=== PATIENT | male | born 1960 | race Caucasian/White ===

== ENCOUNTER 2016-12-07 23:16 | Inpatient (IN) | payer OTHER ==
[2016-12-07] MEDS ORDERED: ASPIRIN 81 MG CHEWABLE TABLETS PO ONE (23:35)
--- NOTE | 2016-12-07 23:35 | PDOC ---
History of Present Illness - General History Source: Patient <Frederick Schroeder - Last Filed: 12/08/16 01:50> - General History Source: Patient Exam Limitations: No Limitations - History of Present Illness Initial Comments: 12/07/16 23:44 The patient is a 56 year old male with significant past medical history of AZ, CAD, s/p pacemaker, s/p stents x4, s/p CABG, hypertension, hyperlipidemia, and s /p right craniotomy for SDH evacuation (09/22/16) who presents to the ED with mid sternal chest pain that began earlier this afternoon. Patient reports he was in his usual state of health when he developed mid sternal chest pain with no radiation. He states his pain is worsened when lying supine. Patient denies diaphoresis, lightheadedness, SOB, shoulder pain, arm pain, jaw pain, nausea, and vomiting. Patient reports his pain is consistent with his previous AZ in the past. He states he is complaint with his medications. The patient denies fever, chills, cough, abdominal pain, and diarrhea. Allergies: NKDA Social History: No alcohol, tobacco, or drug use reported. Past Surgical History: CABG, cardiac stents x4, tonsillectomy, gastric bypass, s /p right craniotomy for SDH evacuation (09/22/16) PCP: Dr. Dada Alexander <Alexandra Srinivasan - Last Filed: 12/08/16 01:56> - General Chief Complaint: Chest Pain Stated Complaint: CHEST PAIN Time Seen by Provider: 12/07/16 23:29 Past History - Past Medical History Anemia: No Asthma: No Cancer: Yes Cardiac Disorders: Yes (CAD) CVA: No COPD: No CHF: Yes Diabetes: No GI Disorders: No HTN: No Hypercholesterolemia: Yes Liver Disease: No Thyroid Disease: No - Surgical History Abdominal Surgery: Yes (gastric bypass) Appendectomy: No Cardiac Surgery: Yes (triple bypass,stents,ICD) Cholecystectomy: No Lung Surgery: No Neurologic Surgery: Yes (brain sx blood clot) Orthopedic Surgery: No - Psycho/Social/Smoking Cessation Hx Anxiety: No Suicidal Ideation: No Smoking Status: No Smoking History: Never smoked Have you smoked in the past 12 months: No Number of Cigarettes Smoked Daily: 0 Information on smoking cessation initiated: No Hx Alcohol Use: No Drug/Substance Use Hx: No Substance Use Type: None Hx Substance Use Treatment: No <TeenicholasFrederick - Last Filed: 12/08/16 01:50> <Alexandra Srinivasan - Last Filed: 12/08/16 01:56> - Past Medical History Allergies/Adverse Reactions: Allergies Allergy/AdvReac Type Severity Reaction Status Date / Time No Known Allergies Allergy Verified 12/07/16 23:19 Home Medications: Ambulatory Orders Atorvastatin Ca [Lipitor] 80 mg PO HS 09/20/16 Calcium Carbonate/Vitamin D3 [Calcium 500 + Vit D Caplet] 1 each PO DAILY Carvedilol 6.25 mg PO BID 09/20/16 Isosorbide Mononitrate [Isosorbide Mononitrate ER] 30 mg PO DAILY 09/20/16 Lisinopril 5 mg PO DAILY 09/20/16 Multivitamin [Poly-Vitamin] 1 each PO DAILY 09/20/16 Acetaminophen [Tylenol .Regular Strength -] 650 mg PO Q6H PRN #30 tablet Atorvastatin Ca [Lipitor] 80 mg PO HS tablet 09/26/16 Calcium (Oyster Shell) [Os-Aiden 500MG -] 500 mg PO DAILY tablet 09/26/16 Carvedilol [Coreg -] 6.25 mg PO BID tablet 09/26/16 Docusate Sodium [Colace -] 100 mg PO TID #90 capsule 09/26/16 Hydrocortisone [Cortef] 10 mg PO DAILY #47 tablet 09/26/16 Isosorbide Mononitrate [Imdur -] 30 mg PO DAILY #30 tab.sr.24h 09/26/16 Levetiracetam [Keppra -] 500 mg PO BID #60 tablet 09/26/16 Lisinopril [Prinivil] 5 mg PO DAILY tablet 09/26/16 Multivitamins [Multivit ([facility] Formul[facility])] 1 tab PO DAILY tab 09/26/16 Review of Systems - Review of Systems Able to Perform ROS?: Yes Comments:: 12/07/16 23:44 CONSTITUTIONAL: Absent: fever, chills, diaphoresis, generalized weakness, malaise, loss of appetite HEENT: Absent: rhinorrhea, nasal congestion, throat pain, throat swelling, difficulty swallowing, mouth swelling, ear pain, eye pain, visual Changes CARDIOVASCULAR: +midsternal chest pain Absent: syncope, palpitations, irregular heart rate, lightheadedness, peripheral edema RESPIRATORY: Absent: cough, shortness of breath, dyspnea with exertion, orthopnea, wheezing, stridor, hemoptysis GASTROINTESTINAL: Absent: abdominal pain, abdominal distension, nausea, vomiting, diarrhea, constipation, melena, hematochezia GENITOURINARY: Absent: dysuria, frequency, urgency, hesitancy, hematuria, flank pain, genital pain MUSCULOSKELETAL: Absent: myalgia, arthralgia, joint swelling SKIN: Absent: rash, itching, pallor NEUROLOGIC: Absent: headache, focal weakness or paresthesias, dizziness, unsteady gait, seizure, mental status changes, bladder or bowel incontinence PSYCHIATRIC: Absent: anxiety, depression, suicidal or homicidal ideation, hallucinations. <Alexandra Srinivasan - Last Filed: 12/08/16 01:56> *Physical Exam - Vital Signs Last Vital Signs Temp Pulse Resp BP Pulse Ox 97.5 F L 100 H 18 160/97 95 12/07/16 23:19 12/07/16 23:19 12/07/16 23:19 12/07/16 23:19 12/07/16 23:19 <Frederick Schroeder - Last Filed: 12/08/16 01:50> - Vital Signs Last Vital Signs Temp Pulse Resp BP Pulse Ox 97.5 F L 100 H 18 160/97 95 12/07/16 23:19 12/07/16 23:19 12/07/16 23:19 12/07/16 23:19 12/07/16 23:19 - Physical Exam Comments: 12/07/16 23:44 GENERAL: Well developed, well nourished. Awake and alert. Moderate distress. HEENT: Normocephalic, atraumatic. PERRLA, EOMI. No conjunctival pallor. Sclera are non- icteric. Moist mucous membranes. Oropharynx is clear. NECK: Supple. Full ROM. No JVD. Carotid pulses 2+ and symmetric, without bruits. No thyromegaly. No lymphadenopathy. CARDIOVASCULAR: Regular rate and rhythm. No murmurs, rubs, or gallops. Distal pulses are 2+ and symmetric. PULMONARY: No evidence of respiratory distress. Lungs clear to auscultation bilaterally. No wheezing, rales or rhonchi. ABDOMINAL: Soft. Non-tender. Morbidly obese. No rebound or guarding. No organomegaly. Normoactive bowel sounds. MUSCULOSKELETAL Normal range of motion at all joints. No bony deformities or tenderness. No CVA tenderness. EXTREMITIES: No cyanosis. No clubbing. No edema. No calf tenderness. SKIN: Warm and dry. Normal capillary refill. No rashes. No jaundice. NEUROLOGICAL: Alert, awake, appropriate. Cranial nerves 2-12 intact. No deficits to light touch and temperature in face, upper extremities and lower extremities. No motor deficits in the in face, upper extremities and lower extremities. Normoreflexic in the upper and lower extremities. Normal speech. PSYCHIATRIC: Cooperative. Good eye contact. Appropriate mood and affect. <Alexandra Srinivasan - Last Filed: 12/08/16 01:56> Heart Score/ECG Review - ECG Impressions Comment:: 12/08/16 00:47 NSR @78bpm Inferior infarct, age undetermined Possible anterior infarct, age undetermined Abnormal ECG <Alexandra Srinivasan - Last Filed: 12/08/16 01:56> ED Treatment Course - LABORATORY CBC & Chemistry Diagram: 12/08/16 00:14 12/08/16 00:14 <Frederick Schroeder - Last Filed: 12/08/16 01:50> - LABORATORY CBC & Chemistry Diagram: 12/08/16 00:14 12/08/16 00:14 <Alexandra Srinivasan - Last Filed: 12/08/16 01:56> Medical Decision Making - Medical Decision Making 12/08/16 01:50 Dr. Schroeder: The scribe's documentation has been prepared under my direction and personally reviewed by me in its entirery. I confirm that the note above accurately reflects all work, treatment, procedures, and medical decision making performed by me. Patient with diagnosis of NSTEMI. patient will be admitted ICU under Dr. Dickens service. Dr. Deng Lindo. <Frederick Schroeder - Last Filed: 12/08/16 01:50> - Medical Decision Making 12/08/16 01:[address] Marta Dickens (via answering service) at 1:14 Awaiting call back Patient's case discussed with Dr. Annabi at 1:40 <Alexandra Srinivasan - Last Filed: 12/08/16 01:56> *DC/Admit/Observation/Transfer - Discharge Dispostion Admit: Yes <Frederick Schroeder - Last Filed: 12/08/16 01:50> - Attestations Scribe Attestion: 12/07/16 23:44 Documentation prepared by Alexandra Srinivasan, acting as medical library assistant for Frederick Schroeder MD <Alexandra Srinivasan - Last Filed: 12/08/16 01:56> Diagnosis at time of Disposition: NSTEMI (non-ST elevated myocardial infarction) Chest pain Qualifiers: Chest pain type: unspecified Qualified Code(s): R07.9 - Chest pain, unspecified - Referrals Referrals: Dada Alexander [Primary Care Provider] -
[2016-12-07] MEDS ORDERED: NITROGLYCERIN 2% OINTMENT - 1GM PACKET TD ONE (23:38)
[2016-12-08] MEDS ORDERED: ASPIRIN 81 MG CHEWABLE TABLETS ONE (00:06)
[2016-12-08 00:21] LABS: BASOPHIL 1.4 % (0-2.0); EOSINOPHIL 4.6 % (0-4.5); MCH 27.7 pg (25.7-33.7); MCHC 33.3 g/dl (32.0-35.9); MEAN CELL VOLUME 83.4 fl (80-96); MEAN PLT VOLUME 8.5 fl (7.5-11.1); NEUTROPHILS 49.8 % (42.8-82.8); PLATELET COUNT 192 K/MM3 (134-434); RDW 14.3 % (11.9-15.9); WHITE BLOOD COUNT 8.3 K/mm3 (4.0-10.0)
[2016-12-08 00:41] LABS: INR 1.04 (0.82-1.09); PROTHROMBIN TIME (PATIENT) 11.5 SEC (9.98-11.88)
[2016-12-08 00:48] LABS: ALBUMIN 3.7 g/dl (3.4-5.0); ANION GAP 8 (8-16); CALCIUM 8.3 mg/dL (8.5-10.1); CO2 31 mmol/L (21-32); CREATININE 1.1 mg/dL (0.7-1.3); GLUCOSE,RANDOM 121 mg/dL (74-106); SGOT/AST 28 U/L (15-37); SGPT/ALT 29 U/L (12-78)
[2016-12-08 01:04] LABS: ALK PHOS 64 U/L (45-117); BILIRUBIN,TOTAL 0.2 mg/dL (0.2-1.0)
[2016-12-08] MEDS ORDERED: CLOPIDOGREL BISULFATE 300 MG TABLET PO ONE (01:13)
[2016-12-08] MEDS ORDERED: morphine CARPU-JECT 2 MG/1 ML DISP.SYRIN IVPUSH ONE ×3 (01:18→11:32)
[2016-12-08] MEDS ORDERED: HEPARIN NA (PORCINE) 5,000 UNITS/ML 1ML VIAL IVPUSH PRN ×2 (01:18)
[2016-12-08] MEDS ORDERED: HEPARIN INFUSION - 500 ML IVPB ONE (01:25)
[2016-12-08] MEDS ORDERED: CLOPIDOGREL BISULFATE 300 MG TABLET ONE (01:25)
[2016-12-08] MEDS ORDERED: morphine CARPU-JECT 2 MG/1 ML DISP.SYRIN ONE ×2 (01:25→03:23)
[2016-12-08] MEDS ORDERED: HEPARIN - 25,000 UNIT in SODIUM CHLORIDE 495 ML IV SCH ×2 (01:30→10:45)
[2016-12-08] MEDS ORDERED: CALCIUM GLUCONATE 10% - 1,000 MG/10 ML VIAL IVPB ONE (03:12)
--- NOTE | 2016-12-08 03:15 | CONSULT ---
Consult Consult Specialty:: Pulm/CC - History of Present Illness History of Present Illness: Pt is a 56yr old man with PMHx of SC, CAD s/p stents x4, ICD, CABG, HTN, HLD and craniotomy for evacuation [place] [address] Simpson. He presents to the ER with CC of midsternal chest pain since the afternoon of the . Found to have +troponinx1. Pt started on asa/heparin gtt/plavix/nitropaste and admitted to the ICU for further management. Upon assessment pt endorses chest pain in the midsternal region, nonradiating, described as similar to muscle pain. Pt denies headache/dizziness/n/v/sob. 124/83, hr 77, 98% on RA RR 20. - Past Medical History Cardio/Vascular: Yes: CAD (multiple MIs, PCIs/stents, CABG), HTN, Hyperlipdemia , [place] Musculoskeletal: Yes: Other (left heel spur 2012) - Past Surgical History Past Surgical History: Yes: CABG (2007), Tonsillectomy - Alcohol/Substance Use Hx Alcohol Use: No History of Substance Use: reports: None - Smoking History Smoking history: Never smoked Have you smoked in the past 12 months: No Aproximately how many cigarettes per day: 0 - Social History ADL: Independent Occupation: disabled History of Recent Travel: No <Myra Montano - Last Filed: 12/08/16 05:19> Home Medications <Myra Montano - Last Filed: 12/08/16 05:19> <Dada Villaseñor MD - Last Filed: 12/08/16 12:38> - Allergies Allergies/Adverse Reactions: Allergies Allergy/AdvReac Type Severity Reaction Status Date / Time No Known Allergies Allergy Verified 12/07/16 23:19 - Home Medications Home Medications: Ambulatory Orders Isosorbide Mononitrate [Isosorbide Mononitrate ER] 30 mg PO DAILY 09/20/16 Acetaminophen [Tylenol .Regular Strength -] 650 mg PO Q6H PRN #30 tablet Atorvastatin Ca [Lipitor] 80 mg PO HS tablet 09/26/16 Calcium (Oyster Shell) [Os-Aiden 500MG -] 500 mg PO DAILY tablet 09/26/16 Carvedilol [Coreg -] 6.25 mg PO BID tablet 09/26/16 Docusate Sodium [Colace -] 100 mg PO TID #90 capsule 09/26/16 Hydrocortisone [Cortef] 10 mg PO DAILY #47 tablet 09/26/16 Levetiracetam [Keppra -] 500 mg PO BID #60 tablet 09/26/16 Lisinopril [Prinivil] 5 mg PO DAILY tablet 09/26/16 Multivitamins [Multivit ([facility] Formul[facility])] 1 tab PO DAILY tab 09/26/16 Aspirin [ASA -] 81 mg PO DAILY@2200 tab.chew 12/08/16 Atorvastatin Ca [Lipitor] 80 mg PO HS tablet 12/08/16 Carvedilol [Coreg -] 6.25 mg PO DAILY@1800 tablet 12/08/16 Levetiracetam [Keppra -] 500 mg PO BID tablet 12/08/16 Lisinopril [Prinivil] 5 mg PO DAILY tablet 12/08/16 Nitroglycerin Sublingual [Nitrostat -] 0.4 mg SL Q5M PRN #0 tab 12/08/16 Family Disease History - Family Disease History Family Disease History: Heart Disease: Father ( age 76 CAD, PAD), Other: Father, Mother (alive healthy) <Myra Montano - Last Filed: 12/08/16 05:19> Review of Systems - Review of Systems Cardiovascular: reports: Chest Pain. denies: Shortness of Breath Respiratory: denies: SOB Gastrointestinal: denies: Abdominal Pain, Constipation, Diarrhea, Nausea, Vomiting Genitourinary: denies: Dysuria Neurological: denies: Headache <Myra Montano - Last Filed: 12/08/16 05:19> Physical Exam Vital Signs: Vital Signs Period Temp Pulse Resp BP Sys/Perez Pulse Ox Last 24 Hr 97.3 F-97.5 F 80-100 18-21 127-160/93-97 95-96 Intake & Output 12/05/16 12/06/16 12/07/16 12/08/16 23:59 23:59 23:59 23:59 Weight 285 lb Constitutional: Yes: Well Nourished, No Distress, Calm Eyes: Yes: WNL, PERRL HENT: Yes: WNL Neck: Yes: WNL Cardiovascular: Yes: S1, S2, Other (chest pain) Respiratory: Yes: WNL, Other (no adventitious breath sounds appreciated). No: Rhonchi, SOB, Wheezes Gastrointestinal: Yes: Normal Bowel Sounds, Soft, Abdomen, Obese. No: Tenderness ...Rectal Exam: Yes: Deferred Extremities: Yes: WNL Edema: No Peripheral Pulses WNL: Yes (+2 rt pedal, +1 left pedal) Integumentary: Yes: WNL Neurological: Yes: WNL Psychiatric: Yes: WNL Labs: Abnormal Lab Results 12/08/16 12/08/16 00:14 00:14 Monocytes % 10.6 H Eosinophils % 4.6 H D Random Glucose 121 H Calcium 8.3 L CK-MB (CK-2) 4.04 H Troponin I 1.10 H* D B-Natriuretic Peptide 641.68 H <Myra Montano - Last Filed: 12/08/16 05:19> Vital Signs: Vital Signs Temperature 97.2 F L 12/08/16 10:00 Pulse Rate 75 12/08/16 12:00 Respiratory Rate 16 12/08/16 12:00 Blood Pressure 124/78 12/08/16 12:00 O2 Sat by Pulse Oximetry (%) 96 12/08/16 02:26 <Dada Villaseñor MD - Last Filed: 12/08/16 12:38> Imaging - Results Chest X-ray: Image Reviewed <Myra Montano - Last Filed: 12/08/16 05:19> Assessment/Plan Pt is a 56yr old man with PMHx of SC, CAD s/p stents x4, ICD, CABG, HTN, HLD and craniotomy for evacuation [place] [address] Simpson. Now in the ICU for management of NSTEMI. Pulm: -O2 support, maintain sat >94% -Incentive spirometer Cardiac -Dr. Lindo consulted in ER -Continue heparin drip, monitor PTT -ASA/Plavix/statin/bb/acei -Trend troponin -F/U repeat EKG -Received with nitropaste on chest, continue prn -BP control -Pt will need cardiac cath ID: -f/[id number] influenza swab -Monitor off antibiotics for now Renal: -Replete electrolytes prn for K 4-5, Mag ~2 Neuro: -Pain management with morphine -Avoid NSAIDS -Continue home Keppra -Seizure precautions Prophylactic -DVT covered with heparin drip <Myra Montano - Last Filed: 12/08/16 05:19> Pt seen and examined. Agree with above. Pt with Acute NSTEMI and persistent chest pain, will be transferred to [facility] for cardiac catheterization. Increase morphine for persistent chest pain while on nitro gtt. Dada Villaseñor MD <Dada Villaseñor MD - Last Filed: 12/08/16 12:38>
[2016-12-08] MEDS ORDERED: morphine CARPU-JECT 2 MG/1 ML DISP.SYRIN IVPUSH PRN ×2 (03:16→05:53)
[2016-12-08] MEDS ORDERED: ATORVASTATIN CA 80 MG TABLET (FP) PO ONE (03:17)
[2016-12-08] MEDS ORDERED: CARVEDILOL 3.125 MG TABLET (FP) PO ONE (03:19)
[2016-12-08 04:07] VITALS: BMI 50.8
[2016-12-08] MEDS ORDERED: morphine CARPU-JECT 4 MG/1 ML DISP.SYRIN IVPUSH ONE (05:52)
[2016-12-08] MEDS ORDERED: NITROGLYCERIN SUBLINGUAL 1/150 0.4 MG TAB SL PRN (05:56)
[2016-12-08 07:05] LABS: PHOSPHOROUS 3.7 mg/dL (2.5-4.9)
[2016-12-08 09:22] LABS: URINE APPEARANCE CLEAR; URINE BILIRUBIN NEGATIVE (NEGATIVE); URINE BLOOD NEGATIVE (NEGATIVE); URINE COLOR YELLOW; URINE GLUCOSE (UA) NEGATIVE (NEGATIVE); URINE KETONE NEGATIVE (NEGATIVE); URINE LEUK ESTERASE NEGATIVE (NEGATIVE); URINE NITRITE NEGATIVE (NEGATIVE); URINE PROTEIN NEGATIVE (NEGATIVE); URINE UROBILINOGEN NEGATIVE E.U./dl (0.2-1.0)
[2016-12-08] MEDS ORDERED: PT OWN MED DRAWER 7, Y5N ONE ×2 (09:24→11:30)
--- NOTE | 2016-12-08 09:39 | CON.CARD ---
Consult Consult Specialty:: Cardiology Referred by:: Dr. Dickens Reason for Consultation:: NSTEMI - History of Present Illness Chief Complaint: Chest pain, NSTEMI History of Present Illness: 56 yo obese male with HTN, hyperlipidemia, CAD, MIx2 in 2007 -> PCI at [facility] after first RI and subsequent CABG x3 vessels 2007 at [facility] after second RI, PCI of LCfx with CHRISTIANO at [facility] 09/2014 -> last stress nuclear on -> large inferior and apical infarct with small infero-apical ischemia, EF 27%, chronic systolic CHF, SRAVANTHI. Patient was last hospitalized here 09/21 - 09/26/16 with subacute right frontal subdural hematoma following head trauma. He underwent craniotomy with evacuation of subdural hematoma on 09/22/16. He is now admitted with substernal chest pain which began yesterday ~ 11 AM when walking quickly to put more money in the parking meter. In ED, he was given NTG paste, aspirin, clopidogrel, and heparin gtt. He continues to have chest pain. Patient reports that he saw Dr. Jose Simpson from neurosurgery ~ 1 month ago and was scheduled to see him in a week or so with repeat head CT. Echo 09/22/16: Severely dilated LV size with moderately reduced systolic function. Mild MR. Mild TR. Normal RVSP. - History Source History Provided By: Patient Limitations to Obtaining History: No Limitations - Past Medical History Cardio/Vascular: Yes: CAD (multiple MIs, PCIs/stents, CABG), HTN, Hyperlipdemia , RI Musculoskeletal: Yes: Other (left heel spur 2012) - Past Surgical History Past Surgical History: Yes: CABG (2007), Tonsillectomy - Alcohol/Substance Use Hx Alcohol Use: No History of Substance Use: reports: None - Smoking History Smoking history: Never smoked Have you smoked in the past 12 months: No Aproximately how many cigarettes per day: 0 - Social History ADL: Independent Occupation: disabled History of Recent Travel: No Home Medications - Allergies Allergies/Adverse Reactions: Allergies Allergy/AdvReac Type Severity Reaction Status Date / Time No Known Allergies Allergy Verified 12/07/16 23:19 - Home Medications Home Medications: Ambulatory Orders Isosorbide Mononitrate [Isosorbide Mononitrate ER] 30 mg PO DAILY 09/20/16 Acetaminophen [Tylenol .Regular Strength -] 650 mg PO Q6H PRN #30 tablet Atorvastatin Ca [Lipitor] 80 mg PO HS tablet 09/26/16 Calcium (Oyster Shell) [Os-Aiden 500MG -] 500 mg PO DAILY tablet 09/26/16 Carvedilol [Coreg -] 6.25 mg PO BID tablet 09/26/16 Docusate Sodium [Colace -] 100 mg PO TID #90 capsule 09/26/16 Hydrocortisone [Cortef] 10 mg PO DAILY #47 tablet 09/26/16 Levetiracetam [Keppra -] 500 mg PO BID #60 tablet 09/26/16 Lisinopril [Prinivil] 5 mg PO DAILY tablet 09/26/16 Multivitamins [Multivit ([facility] Formulary)] 1 tab PO DAILY tab 09/26/16 Aspirin [ASA -] 81 mg PO DAILY@2200 tab.chew 12/08/16 Atorvastatin Ca [Lipitor] 80 mg PO HS tablet 12/08/16 Carvedilol [Coreg -] 6.25 mg PO DAILY@1800 tablet 12/08/16 Levetiracetam [Keppra -] 500 mg PO BID tablet 12/08/16 Lisinopril [Prinivil] 5 mg PO DAILY tablet 12/08/16 Nitroglycerin Sublingual [Nitrostat -] 0.4 mg SL Q5M PRN #0 tab 12/08/16 Family Disease History - Family Disease History Family Disease History: Heart Disease: Father ( age 76 CAD, PAD), Other: Father, Mother (alive healthy) Review of Systems - Review of Systems Constitutional: reports: No Symptoms Eyes: reports: No Symptoms HENT: reports: No Symptoms Cardiovascular: reports: Chest Pain. denies: Edema, Palpitations, Shortness of Breath Respiratory: reports: No Symptoms Gastrointestinal: reports: No Symptoms Genitourinary: reports: No Symptoms Musculoskeletal: reports: No Symptoms Neurological: reports: No Symptoms Endocrine: reports: No Symptoms Hematology/Lymphatic: reports: No Symptoms Psychiatric: reports: No Symptoms Vital Signs: Vital Signs Temperature 97.8 F 12/08/16 06:00 Pulse Rate 76 12/08/16 08:00 Respiratory Rate 16 12/08/16 08:00 Blood Pressure 133/88 12/08/16 08:00 O2 Sat by Pulse Oximetry (%) 96 12/08/16 02:26 Constitutional: Yes: Obese Eyes: Yes: Conjunctiva Clear, EOM Intact HENT: Yes: Atraumatic, Normocephalic Respiratory: Yes: CTA Bilaterally Gastrointestinal: Yes: Normal Bowel Sounds, Soft. No: Tenderness Cardiovascular: Yes: Regular Rate and Rhythm JVD: Yes Carotid Bruit: Yes Heart Sounds: Yes: S1, S2 Murmur: No: Systolic Murmur Musculoskeletal: Yes: WNL Extremities: Yes: WNL Edema: No Neurological: Yes: Alert, Oriented, Cran Nerves II-XII Intact Psychiatric: Yes: Alert, Oriented - Other Data Labs, Other Data: INR, PTT INR 1.04 (0.82-1.09) 12/08/16 00:14 Troponin, BNP 12/08/16 05:05 Troponin I Cancelled Troponin, BNP 12/08/16 05:05 Troponin I Cancelled Sinus rhythm, possible LAE, inferior infarct, poor R wave progression, but no change from 09/24/16 ECG. Imaging - Results Chest X-ray: Report Reviewed, Image Reviewed (12/08/16 CXR: No effusions or infiltrates.) Assessment/Plan 56 yo obese male with HTN, hyperlipidemia, CAD, MIx2 in 2007 -> PCI at [facility] after first RI and subsequent CABG x3 vessels 2007 at [facility] after second RI, PCI of LCfx with CHRISTIANO at [facility] 09/2014 -> last stress nuclear on -> large inferior and apical infarct with small infero-apical ischemia, EF 27%, chronic systolic CHF, & SRAVANTHI. Patient was last hospitalized here 09/21 - 09/26/16 with subacute right frontal subdural hematoma following head trauma. He underwent craniotomy with evacuation of subdural hematoma on 09/22/16. Admitted with substernal chest pain which began yesterday ~ 11 AM -> NSTEMI. No acute ECG changes but continued chest pain and trop 1.11 -> 2.55 Echo 09/22/16: Severely dilated LV size with moderately reduced systolic function. Mild MR. Mild TR. Normal RVSP. Patient continues to have chest pain, 8/10 pain scale despite NTG sl x 1. Received aspirin and Plavix last night. RECS: Start NTG gtt and uptitrate prn. Will stop heparin gtt at this time until stat head CT to confirm if prior subdural hematoma in Sep 2016 is stable. Continue carvedilol and lisinopril. Neurosurgery consultation. If SDH is stable and OK per neurosurgery, will send patient for cardiac cath at [facility]. Spoke with Dr. Simpson (neurosurgery) and Dr. Kumar regarding patient's status and current plan.
[2016-12-08 09:50] LABS: TROPONIN I 2.55 ng/ml (0.00-0.05)
[2016-12-08] MEDS ORDERED: levETIRAcetam 500 MG TABLET (FP) PO SCH (10:00)
[2016-12-08] MEDS ORDERED: NITROGLYCERIN 25MG/D5W 250ML 250 ML IVPB SCH (10:00)
[2016-12-08] MEDS ORDERED: LISINOPRIL 5 MG TABLET (FP) PO SCH (10:00)
[2016-12-08 10:05] VITALS: TEMP 97.2
--- NOTE | 2016-12-08 10:11 | HP ---
Admitting History and Physical - Primary Care Physician PCP: Flaquita Kumar - Admission Chief Complaint: CHEST PAIN PROGRESSIVELY WORSE History of Present Illness: PATIENT WAS PLAYING [employer]INOES WITH FRIENDS AND RAN TO PUT MONEY IN HIS PARKING METER AND DEVELOPED SUDDEN DYSPNEA, CHEST PAIN THAT PROGRESSIVELY WORSENED PROMPTING HIM TO COME TO THE ED FOR EVALUATION. Pt is a 56yr old man with PMHx of UT, CAD s/p stents x4, ICD, CABG, HTN, HLD and craniotomy for [place] [address] Simpson. He presents to the ER with CC of midsternal chest pain since the afternoon of the . Found to have +troponinx1. Pt started on asa/heparin gtt/plavix/nitropaste and admitted to the ICU for further management. Upon assessment pt endorses chest pain in the midsternal region, nonradiating, described as similar to muscle pain. Pt denies headache/dizziness/n/v/sob. 124/83, hr 77, 98% on RA RR 20. History Source: Patient - Past Medical History Cardiovascular: Yes: CAD (multiple MIs, PCIs/stents, CABG), HTN, Hyperlipdemia, UT Musculoskeletal: Yes: Other (left heel spur 2012) - Past Surgical History Past Surgical History: Yes: CABG (2007), Tonsillectomy - Smoking History Smoking history: Never smoked Have you smoked in the past 12 months: No Aproximately how many cigarettes per day: 0 - Alcohol/Substance Use Hx Alcohol Use: No History of Substance Use: reports: None - Social History ADL: Independent Occupation: disabled History of Recent Travel: No Home Medications - Allergies Allergies/Adverse Reactions: Allergies Allergy/AdvReac Type Severity Reaction Status Date / Time No Known Allergies Allergy Verified 12/07/16 23:19 - Home Medications Home Medications: Ambulatory Orders Isosorbide Mononitrate [Isosorbide Mononitrate ER] 30 mg PO DAILY 09/20/16 Acetaminophen [Tylenol .Regular Strength -] 650 mg PO Q6H PRN #30 tablet Atorvastatin Ca [Lipitor] 80 mg PO HS tablet 09/26/16 Calcium (Oyster Shell) [Os-Aiden 500MG -] 500 mg PO DAILY tablet 09/26/16 Carvedilol [Coreg -] 6.25 mg PO BID tablet 09/26/16 Docusate Sodium [Colace -] 100 mg PO TID #90 capsule 09/26/16 Hydrocortisone [Cortef] 10 mg PO DAILY #47 tablet 09/26/16 Levetiracetam [Keppra -] 500 mg PO BID #60 tablet 09/26/16 Lisinopril [Prinivil] 5 mg PO DAILY tablet 09/26/16 Multivitamins [Multivit ([facility] Formulary)] 1 tab PO DAILY tab 09/26/16 Family Disease History - Family Disease History Family Disease History: Heart Disease: Father ( age 76 CAD, PAD), Other: Father, Mother (alive healthy) Review of Systems - Review of Systems Constitutional: reports: Weakness, Other Eyes: reports: No Symptoms HENT: reports: No Symptoms Neck: reports: No Symptoms Cardiovascular: reports: Chest Pain Respiratory: reports: Cough, SOB Gastrointestinal: reports: No Symptoms Genitourinary: reports: No Symptoms Musculoskeletal: reports: No Symptoms Integumentary: reports: No Symptoms Neurological: reports: No Symptoms Endocrine: reports: No Symptoms Hematology/Lymphatic: reports: No Symptoms Physical Examination Vital Signs: Vital Signs Temperature 97.2 F L 12/08/16 10:00 Pulse Rate 84 12/08/16 10:00 Respiratory Rate 16 12/08/16 10:00 Blood Pressure 142/99 12/08/16 10:00 O2 Sat by Pulse Oximetry (%) 96 12/08/16 02:26 Constitutional: Yes: Mild Distress Eyes: Yes: WNL HENT: Yes: Other (SCAR RIGHT SIDED PARIEATAL CLEAN) Neck: Yes: WNL Cardiovascular: Yes: WNL Respiratory: Yes: WNL Gastrointestinal: Yes: WNL Musculoskeletal: Yes: Muscle Weakness Extremities: Yes: WNL Edema: No Integumentary: Yes: WNL Wound/Incision: Yes: Clean/Dry Neurological: Yes: WNL ...Motor Strength: WNL Psychiatric: Yes: WNL Assessment/Plan ACUTE NSTEMI WILL NEED CARDIAC CATH NITRO HOLD HEPARIN IV BECAUSE OF RECENT NEURO SURGERY CT HEAD W/O CONTRAST NOW R/O ANY ACUTE CHANGES FROM PREVIOUS SUBDURAL HEMATOMA NEUROSURGERYE ASHLEY WHEN CLEARED BY NEUROSURGERY CAN PROCEED WITH TRANSFER TO [facility] FOR CARDIAC CATH. DISCUSSED WITH DR ANAND CARDIOLOGY.
[2016-12-08 14:19] VITALS: BP 114/72; PULSE 76
--- NOTE | 2016-12-08 15:38 | EKG ---
Test Reason : Blood Pressure : / mmHG Vent. Rate : 078 BPM Atrial Rate : 078 BPM P-R Int : 146 ms QRS Dur : 094 ms QT Int : 420 ms P-R-T Axes : 003 055 072 degrees QTc Int : 478 ms NORMAL SINUS RHYTHM INFERIOR INFARCT (CITED ON OR BEFORE 08-JUN-2008) POSSIBLE ANTERIOR INFARCT (CITED ON OR BEFORE 17-OCT-2008) ABNORMAL ECG WHEN COMPARED WITH ECG OF 24-SEP-2016 19:01, ST ELEVATION NOW PRESENT IN INFERIOR LEADS ST NOW DEPRESSED IN ANTERIOR LEADS NONSPECIFIC T WAVE ABNORMALITY NO LONGER EVIDENT IN LATERAL LEADS Confirmed by LORE PAVON MD ([id number]) on 12/08/2016 3:38:38 PM Referred By: Confirmed By:LORE PAVON MD
[2016-12-08] MEDS ORDERED: CARVEDILOL 6.25 MG TABLET (FP) PO SCH (18:00)
[2016-12-08] MEDS ORDERED: ATORVASTATIN CA 80 MG TABLET (FP) PO SCH (22:00)
[2016-12-08] MEDS ORDERED: ASPIRIN 81 MG CHEWABLE TABLETS PO SCH (22:00)
[2016-12-08] MEDS ORDERED: CLOPIDOGREL BISULFATE 75 MG TABLET (FP) PO SCH (22:00)
--- NOTE | 2016-12-12 16:24 | EKG ---
Test Reason : Blood Pressure : / mmHG Vent. Rate : 076 BPM Atrial Rate : 076 BPM P-R Int : 148 ms QRS Dur : 096 ms QT Int : 438 ms P-R-T Axes : 000 048 079 degrees QTc Int : 492 ms NORMAL SINUS RHYTHM INFERIOR INFARCT (CITED ON OR BEFORE 08-JUN-2008) ANTERIOR INFARCT (CITED ON OR BEFORE 17-OCT-2008) ABNORMAL ECG WHEN COMPARED WITH ECG OF 08-DEC-2016 00:34, T WAVE VARIATION Confirmed by KINGSLEY JAY MD ([id number]) on 12/12/2016 4:23:56 PM Referred By: JOVANY Confirmed By:KINGSLEY JAY MD
== END 2016-12-08 16:26 | disposition short-term general hospital (02) | DRG 190 ==
LOC: JER 23:16 → JERBED 12-08 02:01 → JICU 12-08 03:19
PROVIDERS: ADMIT Family Medicine; ATTEND Family Medicine
DX: I21.4 Non-ST elevation (NSTEMI) myocardial infarction (principal); I25.10 Atherosclerotic heart disease of native coronary artery without angina pectoris; Z98.61 Coronary angioplasty status; Z95.1 Presence of aortocoronary bypass graft; I10 Essential (primary) hypertension; E78.5 Hyperlipidemia, unspecified; I25.2 Old myocardial infarction; R07.9 Chest pain, unspecified; I50.22 Chronic systolic (congestive) heart failure
CPT/HCPCS: 36415; 70450-TC; 71020-TC; 80053; 81003; 82550; 82553; 83605; 83690; 83735; 83880; 84100; 84484; 85025; 85610; 85730; 87254; 87804; 93005; 93010; 99284-25; J1644

== ENCOUNTER 2017-01-19 17:27 | Emergency (ER) | payer OTHER ==
--- NOTE | 2017-01-19 17:43 | PDOC ---
Rapid Medical Evaluation Time Seen by Provider: 01/19/17 17:35 Medical Evaluation: Allergies Allergy/AdvReac Type Severity Reaction Status Date / Time No Known Allergies Allergy Verified 12/07/16 23:19 01/19/17 17:35 I have performed a brief in-person evaluation of this patient. The patient presents with a chief complaint of: tripped and fell injured left ribs and hands, no LOC Pertinent physical exam findings: tenderness to left lower ribs I have ordered the following: x-rays ribs The patient will proceed to the fast track for further evaluation
[2017-01-19 17:44] VITALS: BP 155/89; PULSE 89; TEMP 97.3; BMI 42.5
--- NOTE | 2017-01-19 20:48 | PDOC ---
History of Present Illness - General Chief Complaint: Injury Stated Complaint: FALL/INJURY Time Seen by Provider: 01/19/17 17:35 History Source: Patient Exam Limitations: No Limitations - History of Present Illness Initial Comments: 01/19/17 20:48 FELL TODAY WITH PAIN LEFT RIBS; LEFT HAND AND RIGHT KNEE Past History - Past Medical History Allergies/Adverse Reactions: Allergies Allergy/AdvReac Type Severity Reaction Status Date / Time No Known Allergies Allergy Verified 01/19/17 17:42 Home Medications: Ambulatory Orders Isosorbide Mononitrate [Isosorbide Mononitrate ER] 30 mg PO DAILY 09/20/16 Acetaminophen [Tylenol .Regular Strength -] 650 mg PO Q6H PRN #30 tablet Atorvastatin Ca [Lipitor] 80 mg PO HS tablet 09/26/16 Calcium (Oyster Shell) [Os-Aiden 500MG -] 500 mg PO DAILY tablet 09/26/16 Carvedilol [Coreg -] 6.25 mg PO BID tablet 09/26/16 Docusate Sodium [Colace -] 100 mg PO TID #90 capsule 09/26/16 Hydrocortisone [Cortef] 10 mg PO DAILY #47 tablet 09/26/16 Levetiracetam [Keppra -] 500 mg PO BID #60 tablet 09/26/16 Lisinopril [Prinivil] 5 mg PO DAILY tablet 09/26/16 Multivitamins [Multivit ([facility] Formulary)] 1 tab PO DAILY tab 09/26/16 Aspirin [ASA -] 81 mg PO DAILY@2200 tab.chew 12/08/16 Atorvastatin Ca [Lipitor] 80 mg PO HS tablet 12/08/16 Carvedilol [Coreg -] 6.25 mg PO DAILY@1800 tablet 12/08/16 Levetiracetam [Keppra -] 500 mg PO BID tablet 12/08/16 Lisinopril [Prinivil] 5 mg PO DAILY tablet 12/08/16 Nitroglycerin Sublingual [Nitrostat -] 0.4 mg SL Q5M PRN #0 tab 12/08/16 Anemia: No Asthma: No Cancer: No Cardiac Disorders: Yes (CAD, ICD) CVA: Yes ([facility] 2015) COPD: No CHF: Yes Dementia: No Diabetes: No GI Disorders: No Disorders: No HTN: No Hypercholesterolemia: Yes Liver Disease: No Seizures: Yes Thyroid Disease: No - Surgical History Abdominal Surgery: Yes (gastric bypass) Appendectomy: No Cardiac Surgery: Yes (triple bypass,stents,ICD) Cholecystectomy: No Lung Surgery: No Neurologic Surgery: Yes ([facility] Evacuation 2016) Orthopedic Surgery: No - Psycho/Social/Smoking Cessation Hx Anxiety: No Suicidal Ideation: No Smoking Status: No Smoking History: Never smoked Have you smoked in the past 12 months: No Number of Cigarettes Smoked Daily: 0 Information on smoking cessation initiated: No Hx Alcohol Use: No Drug/Substance Use Hx: No Substance Use Type: None Hx Substance Use Treatment: No Review of Systems - Review of Systems Constitutional: Yes: Symptoms Reported HEENTM: No: Symptoms Reported Respiratory: No: Symptoms reported, Cough, Orthopnea, Shortness of Breath Cardiac (ROS): Yes: Chest Pain (LEFT LATERAL RIB PAIN). No: Symptoms Reported : No: Symptoms Reported Musculoskeletal: Yes: Joint Pain, Joint Swelling *Physical Exam - Vital Signs Last Vital Signs Temp Pulse Resp BP Pulse Ox 97.3 F L 89 18 155/89 99 01/19/17 17:42 01/19/17 17:42 01/19/17 17:42 01/19/17 17:42 01/19/17 17:42 - Physical Exam General Appearance: Yes: Appropriately Dressed. No: Apparent Distress HEENT: positive: TMs Normal, Pharynx Normal Neck: positive: Supple. negative: Tender, Rigid, Tender lateral, Tender midline Respiratory/Chest: positive: Lungs Clear, Other (TENDER LEFT ANTERIOR/ LATERAL RIBS, LEVEL OF NIPPLE ) Musculoskeletal: positive: Other (TENDER RIGHT PATELLA; TENDER THENAR PROMINENCE LEFT HAND) ED Treatment Course - RADIOLOGY Radiology Studies Ordered: Category Date Time Status HAND- LEFT [RAD] Stat Radiology 01/19/17 18:38 Completed KNEE 2 POS-RIGHT [RAD] Stat Radiology 01/19/17 18:38 Completed Medical Decision Making - Medical Decision Making 01/19/17 20:51 NO FRACTURES; EDY TREAT WITH TYLENOL ONLY *DC/Admit/Observation/Transfer Diagnosis at time of Disposition: Contusion, multiple sites - Discharge Dispostion Disposition: HOME Condition at time of disposition: Stable Admit: No - Referrals Referrals: Dada Alexander [Primary Care Provider] - - Patient Instructions Additional Instructions: TYLENOL FOR PAIN; SEE LOCAL md 1 WEEK IF NO BETTER - Post Discharge Activity Work/School Note: Back to Work
== END 2017-01-19 21:09 | disposition home or self-care (01) ==
LOC: JER 17:27 → JERFT 17:27
DX: T14.8 Other injury of unspecified body region (principal); W19.XXXA Unspecified fall, initial encounter; Y93.9 Activity, unspecified; Y92.9 Unspecified place or not applicable; I25.10 Atherosclerotic heart disease of native coronary artery without angina pectoris; Z86.73 Personal history of transient ischemic attack (TIA), and cerebral infarction without residual deficits; I50.9 Heart failure, unspecified; Z98.84 Bariatric surgery status; Z95.810 Presence of automatic (implantable) cardiac defibrillator; Z95.1 Presence of aortocoronary bypass graft; Z79.82 Long term (current) use of aspirin
CPT/HCPCS: 71101-TC; 73130-TC-LT; 73560-TC-RT; 99281-25

== ENCOUNTER 2018-09-11 12:49 | Observation (INO) | payer OTHER ==
[2018-09-11 13:00] VITALS: TEMP 97.9; BMI 45.1
[2018-09-11] MEDS ORDERED: ALBUTEROL SO4 2.5/IPRATROPIUM 0.5 INH SOL 3 ML VIAL.NEB. NEB ONE ×2 (13:27→15:59)
[2018-09-11 14:12] LABS: BASO % 0.4 % (0-2.0); EOS % 6.8 % (0-4.5); HEMATOCRIT 40.8 % (35.4-49); HEMOGLOBIN 13.5 GM/dL (11.7-16.9); LYMPH % 27.3 % (8-40); MCH 28.2 pg (25.7-33.7); MCHC 33.1 g/dl (32.0-35.9); MEAN CELL VOLUME 85.3 fl (80-96); MEAN PLT VOLUME 8.8 fl (7.5-11.1); MONO % 10.3 % (3.8-10.2); NEUT % 55.2 % (42.8-82.8); PLATELET COUNT 167 K/MM3 (134-434); RBC 4.78 M/mm3 (4.00-5.60); RDW 13.9 % (11.9-15.9); WHITE BLOOD COUNT 4.2 K/mm3 (4.0-10.0)
--- NOTE | 2018-09-11 14:26 | PDOC ---
History of Present Illness - General Chief Complaint: Chest Pain Stated Complaint: Chest Pain Time Seen by Provider: 09/11/18 13:19 History Source: Patient Exam Limitations: No Limitations - History of Present Illness Initial Comments: 09/11/18 14:20 Patient is a 58M with history of multiple MIs s/p CABG and stents, ICD, HTN, HLD and subdural hematoma here today complaining of cough for the past two weeks. He states that he's also developed chest pain that started yesterday. The chest pain worsens with inspiration. No changes with exertion or rest. No change with palpation. Endorses subjective fevers and chills. Denies leg swelling, prior blood clots, recent travel. Denies sick contacts, states that he got a flu shot last week. Past History - Past Medical History Allergies/Adverse Reactions: Allergies Allergy/AdvReac Type Severity Reaction Status Date / Time No Known Allergies Allergy Verified 01/19/17 17:42 Home Medications: Ambulatory Orders Isosorbide Mononitrate [Isosorbide Mononitrate ER] 30 mg PO DAILY 09/20/16 Acetaminophen [Tylenol .Regular Strength -] 650 mg PO Q6H PRN #30 tablet Atorvastatin Ca [Lipitor] 80 mg PO HS tablet 09/26/16 Calcium (Oyster Shell) [Os-Aiden 500MG -] 500 mg PO DAILY tablet 09/26/16 Carvedilol [Coreg -] 6.25 mg PO BID tablet 09/26/16 Docusate Sodium [Colace -] 100 mg PO TID #90 capsule 09/26/16 Hydrocortisone [Cortef] 10 mg PO DAILY #47 tablet 09/26/16 Lisinopril [Prinivil] 5 mg PO DAILY tablet 09/26/16 Multivitamins [Multivit ([facility] Formulary)] 1 tab PO DAILY tab 09/26/16 levETIRAcetam [Keppra -] 500 mg PO BID #60 tablet 09/26/16 Aspirin [ASA -] 81 mg PO DAILY@2200 tab.chew 12/08/16 Atorvastatin Ca [Lipitor] 80 mg PO HS tablet 12/08/16 Carvedilol [Coreg -] 6.25 mg PO DAILY@1800 tablet 12/08/16 Lisinopril [Prinivil] 5 mg PO DAILY tablet 12/08/16 Nitroglycerin Sublingual [Nitrostat -] 0.4 mg SL Q5M PRN #0 tab 12/08/16 Anemia: No Asthma: No Cancer: No Cardiac Disorders: Yes (CAD, ICD,STENTS X 6) CVA: Yes ([facility] 2015) COPD: No CHF: Yes Dementia: No Diabetes: No GI Disorders: No Disorders: No HTN: No Hypercholesterolemia: Yes Liver Disease: No Seizures: Yes Thyroid Disease: No - Surgical History Abdominal Surgery: Yes (gastric bypass) Appendectomy: No Cardiac Surgery: Yes (triple bypass,stents,ICD) Cholecystectomy: No Lung Surgery: No Neurologic Surgery: Yes ([facility] Evacuation 2015) Orthopedic Surgery: No - Suicide/Smoking/Psychosocial Hx Smoking Status: No Smoking History: Never smoked Have you smoked in the past 12 months: No Number of Cigarettes Smoked Daily: 0 Hx Alcohol Use: No Drug/Substance Use Hx: No Substance Use Type: None Hx Substance Use Treatment: No Review of Systems - Review of Systems Able to Perform ROS?: Yes Comments:: 09/11/18 14:23 GENERAL/CONSTITUTIONAL: +fever +chills. No weakness. HEAD, EYES, EARS, NOSE AND THROAT: No change in vision. No sore throat. CARDIOVASCULAR: +chest pain +shortness of breath RESPIRATORY: +cough, +wheezing, no hemoptysis. GASTROINTESTINAL: No nausea, vomiting, diarrhea or constipation. GENITOURINARY: No dysuria, frequency, or change in urination. MUSCULOSKELETAL: No joint or muscle swelling or pain. No neck or back pain. SKIN: No rash NEUROLOGIC: No headache, vertigo, loss of consciousness, or change in strength/ sensation. ENDOCRINE: No increased thirst. No abnormal weight change HEMATOLOGIC/LYMPHATIC: No anemia, easy bleeding, or history of blood clots. ALLERGIC/IMMUNOLOGIC: No hives or skin allergy. *Physical Exam - Vital Signs Last Vital Signs Temp Pulse Resp BP Pulse Ox 97.9 F 82 22 H 124/82 98 09/11/18 12:55 09/11/18 12:55 09/11/18 12:55 09/11/18 12:55 09/11/18 12:55 - Physical Exam Comments: 09/11/18 14:24 GENERAL: Awake, alert, and fully oriented, in no acute distress HEAD: No signs of trauma, normocephalic, atraumatic EYES: PERRLA, EOMI, sclera anicteric, conjunctiva clear ENT: Auricles normal inspection, hearing grossly normal, nares patent, oropharynx clear without exudates. Moist mucosa NECK: Normal ROM, supple, no lymphadenopathy, JVD, or masses LUNGS: No distress, speaks full sentences, scattered wheezes bilaterally HEART: Regular rate and rhythm, normal S1 and S2, no murmurs, rubs or gallops, peripheral pulses normal and equal bilaterally. ABDOMEN: Soft, nontender, normoactive bowel sounds. No guarding, no rebound. No masses EXTREMITIES: Normal inspection, Normal range of motion, no edema. No clubbing or cyanosis. NEUROLOGICAL: Cranial nerves II through XII grossly intact. Normal speech, normal gait, no focal sensorimotor deficits SKIN: Warm, Dry, normal turgor, no rashes or lesions noted. Heart Score/ECG Review - History History: Slightly suspicious - Electrocardiogram EKG: Normal - Age Age: 45-65 - Risk Factors Based on the list above the patient has:: >/=3 risk factors or Hx atherosclerotic disease - Troponin Troponin: </= normal limit - Score Heart Score - Total: 3 ED Treatment Course - LABORATORY CBC & Chemistry Diagram: 09/11/18 14:00 09/11/18 14:00 - ADDITIONAL ORDERS Additional order review: 09/11/18 14:00 RBC 4.78 MCV 85.3 MCHC 33.1 RDW 13.9 MPV 8.8 Neutrophils % 55.2 Lymphocytes % 27.3 Monocytes % 10.3 H Eosinophils % 6.8 H Basophils % 0.4 - RADIOLOGY Radiology Studies Ordered: Category Date Time Status CHEST X-RAY PORTABLE* [RAD] Stat Radiology 09/11/18 13:26 Taken Medical Decision Making - Medical Decision Making 09/11/18 14:24 Patient is a 58M with history of multiple MIs s/p stenting, CABG and ICD, HTN, HLD, subdural hematoma here today with chest pain, cough, and shortness of breath. Vitals normal and stable. DDx includes, but is not limited to: pneumonia , COPD exacerbation, ACS, arrhythmia. EKG shows normal sinus rhythm with one PVC. No st elevations/depressions. Q waves in III/aVF. Normal axis. Normal intervals. No significant t wave abnormalities. CBC, CMP normal. Troponin undetectable. CXR shows no acute cardiopulmonary process. Patient admitted to Dr Kumar. Patient decided to AMA, stating he would follow up with his primary care doctor tomorrow. Dr Kumar notified. *DC/Admit/Observation/Transfer Diagnosis at time of Disposition: Chest pain - Discharge Dispostion Disposition: AGAINST MEDICAL ADVICE Condition at time of disposition: Stable Decision to Admit order: Yes - Referrals - Patient Instructions - Post Discharge Activity
[2018-09-11 14:29] LABS: INR 1.21 (0.83-1.09); PROTHROMBIN TIME (PATIENT) 14.3 SEC (9.7-13.0)
[2018-09-11 14:46] LABS: ALBUMIN 3.5 g/dl (3.4-5.0); ALK PHOS 40 U/L (45-117); ANION GAP 7 MMOL/L (8-16); BILIRUBIN,TOTAL 0.5 mg/dL (0.2-1); BLOOD UREA NITROGEN 14 mg/dL (7-18); CALCIUM 8.5 mg/dL (8.5-10.1); CHLORIDE 106 mmol/L (98-107); CO2 27 mmol/L (21-32); CREATININE 0.8 mg/dL (0.55-1.3); GLUCOSE,RANDOM 91 mg/dL (74-106); MAGNESIUM 2.1 mg/dL (1.8-2.4); POTASSIUM 3.8 mmol/L (3.5-5.1); SGOT/AST 16 U/L (15-37); SGPT/ALT 20 U/L (13-61); SODIUM 140 mmol/L (136-145); TOT PROT 6.9 g/dl (6.4-8.2)
[2018-09-11 14:58] VITALS: BP 99/62; PULSE 72
[2018-09-11 15:09] LABS: N-TERMINAL BNP 413.5 pg/ml (5-125)
--- NOTE | 2018-09-11 16:34 | PDOC ---
Attending Attestation - Resident Resident Name: Jose Bedolla - ED Attending Attestation I have performed the following: I have examined & evaluated the patient, The case was reviewed & discussed with the resident, I agree w/resident's findings & plan - HPI HPI: 09/11/18 16:34 Antonio Penaloza is a 58-year-old male, with a past medical history of multiple MIs, CAD, s/p pacemaker, s/p stents x4, s/p CABG, hypertension, hyperlipidemia , and s/p right craniotomy for [facility] evacuation (09/22/16), who presents to the ED with 2 weeks of URI symptoms and chest pain that began today. Patient reports that his pacemaker was recently interrogated and was said to be not functioning properly. Allergies: NKA Social History: None reported. Surgical History: subdural hematoma sx, triple bypass, stents, ICD, gastric bypass. - Physicial Exam PE: 09/11/18 17:29 NAD, well appearing, MMM, nl conjunctiva, anicteric; neck supple. no JVD. lungs clear, RRR, anterior sternotomy scar. abdomen soft nontender, obese. DENT x4, no focal neuro deficits. No peripheral edema. normal color for ethnicity, WWP. no calf tenderness. - Medical Decision Making 09/11/18 17:23 Antonio Penaloza is a 58-year-old male, with a past medical history of multiple MIs, CAD, s/p pacemaker, s/p stents x4, s/p CABG, hypertension, hyperlipidemia , and s/p right craniotomy for [facility] evacuation (09/22/16), who presents to the ED with 2 weeks of URI symptoms and chest pain Vital signs reviewed, wnl. Prior notes reviewed, including admissions, discharges and consultations. laboratory results and imaging reviewed, basic labs and lytes wnl, reassuring. Within normal limits, INR 1.2, troponin negative 1. CXR_cardiomegaly. Cardiac panel negative EKG normal sinus rhythm, no interval abnormalities, narrow QRS, ST and T wave segments and morphology normal. Nonspecific T wave abnormalities; intermittent PVC. ED course: no acute events, remained stable and well appearing. Clinically improved after interventions, including duonebs for cough/comfort, normal sats and no respiratory distress or decompensation. Heart visualized in four views using phased array probe ( sub-xiphoid, Parasternal long and short, and apical). severely depressed EF <30%, no pericardial effusion, RV<LV. Dispo: Admit for r/o ACS, serial EKG/trops, ppm/defib interrogation, inpatient cards cs.. Discussed results and management plan with pt and family member at bedside, agree with impression and plan however at 545pm, change in disposition Note: The patient insists on leaving the emergency dept and is signing out against medical advice. The patient understands the risks and complications that may result from the refusal of medical care and admission which includes and permanent disability, Pt understands the nature of condition and treatment plan, including potential risks but not limited to: cardiac arrest, severe infection , dehydration, myocardial infarction, arrhythmia, stroke, respiratory failure, coma, severe disability and .. The patient has the mental capacity of understanding the risks of refusing care and is capable of making an informed decision. The patient was instructed to return to the emergency department should [x] change [x] mind regarding medical care or should [x] condition worsen. The patient signed the Against Medical Advice form. 09/11/18 17:57 Procedures - Bedside Ultrasound Bedside Ultrasound: Cardiac Remarks: 09/11/18 17:28 POCUS echo performed, indication includes chest pain/dyspnea. views obtained ( PSLA, PSS, A4, SX, IVC). Findings include severely depressed EF on visual estimation <30%, pacemaker wire in right heart visualized, no pericardial effusion. Normal aortic root <4cm. RV<LV. Impression: depressed ejection fraction c/w underlying cardiomyopathy.
--- NOTE | 2018-09-12 15:19 | EKG ---
Test Reason : Blood Pressure : / mmHG Vent. Rate : 084 BPM Atrial Rate : 084 BPM P-R Int : 148 ms QRS Dur : 108 ms QT Int : 396 ms P-R-T Axes : 010 -11 076 degrees QTc Int : 467 ms SINUS RHYTHM WITH OCCASIONAL PREMATURE VENTRICULAR COMPLEXES INFERIOR INFARCT (CITED ON OR BEFORE 08-JUN-2008) ANTERIOR INFARCT (CITED ON OR BEFORE 17-OCT-2008) ABNORMAL ECG WHEN COMPARED WITH ECG OF 08-DEC-2016 03:43, PREMATURE VENTRICULAR COMPLEXES ARE NOW PRESENT QUESTIONABLE CHANGE IN QRS AXIS Confirmed by MIGUEL BENITO MD ([id number]) on 09/12/2018 3:19:14 PM Referred By: Confirmed By:MIGUEL BENITO MD
== END 2018-09-11 19:25 | disposition left against medical advice (07) ==
LOC: JER 12:49 → JERBED 15:34
PROVIDERS: ADMIT Family Medicine; ATTEND Family Medicine
PROC: B246ZZZ Ultrasonography of Right and Left Heart (ICD-10-PCS; principal; 2018-09-11)
PROC: 3E0F7GC Introduction of Other Therapeutic Substance into Respiratory Tract, Via Natural or Artificial Opening (ICD-10-PCS; 2018-09-11)
DX: R07.9 Chest pain, unspecified (principal); I11.0 Hypertensive heart disease with heart failure; E78.5 Hyperlipidemia, unspecified; I25.2 Old myocardial infarction; I25.10 Atherosclerotic heart disease of native coronary artery without angina pectoris; I50.9 Heart failure, unspecified; Z98.84 Bariatric surgery status; Z79.82 Long term (current) use of aspirin; Z95.810 Presence of automatic (implantable) cardiac defibrillator; Z95.1 Presence of aortocoronary bypass graft; Z95.5 Presence of coronary angioplasty implant and graft
CPT/HCPCS: 36415; 71045-TC-FY; 80053; 82550; 83735; 83880; 84484; 85025; 85610; 87040; 87804; 93005; 93010; 94640; 99282-25; G0378

== ENCOUNTER 2019-08-02 20:26 | Observation (INO) | payer OTHER ==
--- NOTE | 2019-08-02 20:41 | PDOC ---
Attending Attestation - Resident Resident Name: Dejan Alexander - HPI HPI: 08/02/19 23:49 Pt presents to the ED complaining of syncope. Volin lightheaded, lost consciousness and fell forward, knocking out one of his teeth. Currently denies complaints. - Physicial Exam PE: 08/03/19 00:18 Agree with resident exam. HEENT: Missing front tooth. Adjacent teeth are very slightly loose, but stable. CV: rrr, no murmurs. lungs:cta b/l abdomen: soft, non tender, non distended. - Medical Decision Making 08/03/19 00:29 Pt presents to the ED complaining of syncope. Has defibrilator in place. Concern for arrythmia, ACS, severe anemia. Labs are within normal limits. EKG shows no evidence of acute ischemia. s/p fall--CT head and C spine checked to rule out intracranial hemorrhage or cervical spine fracture, and is negative. Will admit to medicine.
--- NOTE | 2019-08-02 20:45 | PDOC ---
History of Present Illness - General Chief Complaint: Injury Stated Complaint: FALL Time Seen by Provider: 08/02/19 20:41 History Source: Patient Exam Limitations: No Limitations - History of Present Illness Initial Comments: 59 yo M with a hx of CAD (s/p CABG 2007; 6-[address] Dela Cruz), LV systolic failure (nuclear shows 23% with large infarct in inferior/ inferolateral/lateral currently in consultation with Dr. Huong Del Rio for cardiac transplant), HLD, subdural hematoma (s/p craniotomy 2015), and hypothyroidism presents to the emergency department s/p syncopal event at 7:30 pm while sitting. Per the patient, he states he was sitting on a chair when he had a sudden onset of lightheadedness followed by LOC. Per the family, he fell forward from his chair and struck the ground face first (losing a tooth; floor is hardwood with concrete). Per the family, his LOC lasted "2-3 seconds" with spontaneous awakening. The patient currently has no symptomatic complaints except for mouth pain and neck pain. Per the patient, he denies the following symptoms prior to the LOC episode: fever, chills, nausea, vomiting, chest pain, SOB, abdominal pain, dysuria, hematuria, diarrhea, and leg pain/swelling. Allergies: NKDA Past History - Past Medical History Allergies/Adverse Reactions: Allergies Allergy/AdvReac Type Severity Reaction Status Date / Time No Known Allergies Allergy Verified 08/02/19 20:56 Home Medications: Ambulatory Orders Isosorbide Mononitrate [Isosorbide Mononitrate ER] 30 mg PO DAILY 09/20/16 Acetaminophen [Tylenol .Regular Strength -] 650 mg PO Q6H PRN #30 tablet Atorvastatin Ca [Lipitor] 80 mg PO HS tablet 09/26/16 Calcium (Oyster Shell) [Os-Aiden 500MG -] 500 mg PO DAILY tablet 09/26/16 Carvedilol [Coreg -] 6.25 mg PO BID tablet 09/26/16 Docusate Sodium [Colace -] 100 mg PO TID #90 capsule 09/26/16 Hydrocortisone [Cortef] 10 mg PO DAILY #47 tablet 09/26/16 Lisinopril [Prinivil] 5 mg PO DAILY tablet 09/26/16 Multivitamins [Multivit ([facility] Formulary)] 1 tab PO DAILY tab 09/26/16 levETIRAcetam [Keppra -] 500 mg PO BID #60 tablet 09/26/16 Aspirin [ASA -] 81 mg PO DAILY@2200 tab.chew 12/08/16 Atorvastatin Ca [Lipitor] 80 mg PO HS tablet 12/08/16 Carvedilol [Coreg -] 6.25 mg PO DAILY@1800 tablet 12/08/16 Lisinopril [Prinivil] 5 mg PO DAILY tablet 12/08/16 Nitroglycerin Sublingual [Nitrostat -] 0.4 mg SL Q5M PRN #0 tab 12/08/16 Anemia: No Asthma: No Cancer: No Cardiac Disorders: Yes (CAD, ICD,STENTS X 6) CVA: Yes ([facility] 2015) COPD: No CHF: Yes Dementia: No Diabetes: No GI Disorders: No Disorders: No HTN: No Hypercholesterolemia: Yes Liver Disease: No Seizures: Yes Thyroid Disease: No - Surgical History Abdominal Surgery: Yes (gastric bypass) Appendectomy: No Cardiac Surgery: Yes (triple bypass,stents,ICD) Cholecystectomy: No Lung Surgery: No Neurologic Surgery: Yes ([facility] Evacuation 2015) Orthopedic Surgery: No - Suicide/Smoking/Psychosocial Hx Smoking Status: No Smoking History: Never smoked Have you smoked in the past 12 months: No Number of Cigarettes Smoked Daily: 0 Hx Alcohol Use: No Drug/Substance Use Hx: No Substance Use Type: None Hx Substance Use Treatment: No Review of Systems - Review of Systems Able to Perform ROS?: Yes Is the patient limited Mauritanian proficient: No Constitutional: No: Chills, Diaphoresis, Fever, Weakness HEENTM: Yes: Mouth Pain. No: Eye Pain, Ear Pain, Nose Pain, Throat Pain Respiratory: No: Cough, Shortness of Breath, SOB with Exertion, Hemoptysis Cardiac (ROS): Yes: Syncope. No: Chest Pain, Edema, Lightheadedness, Palpitations, Chest Tightness ABD/GI: No: Constipated, Diarrhea, Nausea, Poor Appetite, Poor Fluid Intake, Rectal Bleeding, Vomiting, Tarry Stools : No: Burning, Dysuria, Hematuria, Incontinence Musculoskeletal: Yes: Neck Pain. No: Back Pain, Joint Pain Integumentary: No: Bruising, Erythema, Rash Neurological: No: Headache, Numbness, Tingling, Tremors Psychiatric: No: Change in Appetite Endocrine: No: Unexplained Weight Gain Hematologic/Lymphatic: No: Anemia *Physical Exam - Physical Exam General Appearance: Yes: Nourished, Appropriately Dressed, Obese. No: Apparent Distress, Intoxicated HEENT: positive: EOMI, DAVID, Normal Voice, Symmetrical, Hearing Grossly Normal, Other (blood on the upper and lower lip (no laceration; abrasion present). Tooth 8 not present. Tooth 9 and 7 loose but intact in the gum. Palate, mandible , maxilla, and nasal bone intact. No tenderness to palption in the orbitals. No ecchymosis noted in the orbitals. ). negative: Pharynx Normal, Pale Conjunctivae, Scleral Icterus (R), Scleral Icterus (L), Muffled/Hoarse voice, Pharyngeal Erythema, Tonsillar Exudate, Tonsillar Erythema, Nasal Congestion, Rhinorrhea, Sinus Tenderness, Excessive drooling Neck: positive: Trachea midline, Supple, Tender midline (C7). negative: Tender , Lymphadenopathy (R), Lymphadenopathy (L), Tender lateral Respiratory/Chest: positive: Lungs Clear, Normal Breath Sounds. negative: Chest Tender, Respiratory Distress, Accessory Muscle Use, Crackles, Rales, Rhonchi, Stridor, Wheezing, Hyperresonant Cardiovascular: positive: Regular Rate, S1, S2, Irregularly Irregular, Other ( split S1/S2) Gastrointestinal/Abdominal: positive: Normal Bowel Sounds, Flat, Soft, Protuberent. negative: Tender, Distended, Guarding, Rebound, Tenderness Lymphatic: negative: Adenopathy Musculoskeletal: positive: Normal Inspection. negative: CVA Tenderness, Vertebral Tenderness Extremity: positive: Normal Capillary Refill, Normal Inspection, Normal Range of Motion. negative: Tender Integumentary: positive: Normal Color, Dry, Warm Neurologic: positive: bevel face stoner and polisher II-XII NML intact, Fully Oriented, Alert, Normal Mood/ Affect, Normal Response, Motor Strength 5/5 ED Treatment Course - LABORATORY CBC & Chemistry Diagram: 08/02/19 21:30 08/02/19 21:30 Medical Decision Making - Medical Decision Making 59 yo M with a hx of CAD (s/p CABG 2007; 6-[address] Dela Cruz), LV systolic failure (nuclear shows 23% with large infarct in inferior/ inferolateral/lateral currently in consultation with Dr. Huong Del Rio for cardiac transplant), HLD, subdural hematoma (s/p craniotomy 2016), and hypothyroidism presents to the emergency department s/p syncopal event at 7:30 pm while sitting. Initial vitals Initial Vital Signs Temp Pulse Resp BP Pulse Ox 97.9 F 89 17 155/115 H 100 08/02/19 20:46 08/02/19 20:46 08/02/19 20:46 08/02/19 20:46 08/02/19 20:46 Work up syncope. patient had a 2-3 second LOC with lightheadedness prior to the event. given significant cardiac hx as well as hx of arrhythmia (patient unsure of the diagnosis). ddx includes neurogenic vs metabolic vs hypovolemia. Laboratory Tests 08/02/19 08/02/19 08/02/19 21:30 21:30 21:30 WBC 6.7 RBC 4.50 Hgb 12.8 Hct 39.0 MCV 86.8 MCH 28.5 MCHC 32.9 RDW 14.8 Plt Count 135 MPV 9.2 Absolute Neuts (auto) 4.3 Neutrophils % 64.3 Lymphocytes % 25.6 Monocytes % 6.9 Eosinophils % 2.7 Basophils % 0.5 Nucleated RBC % 0 PT with INR INR Sodium 143 Potassium 3.5 Chloride 110 H Carbon Dioxide 30 Anion Gap 4 L BUN 15.0 Creatinine 0.8 Est GFR (CKD-EPI)AfAm 114.93 Est GFR (CKD-EPI)NonAf 99.16 Random Glucose 94 Calcium 8.5 Total Bilirubin 0.4 AST 28 ALT 23 Alkaline Phosphatase 38 L Creatine Kinase 315 H Creatine Kinase Index 0.8 CK-MB (CK-2) 2.7 Troponin I < 0.02 Total Protein 6.3 L Albumin 3.6 TSH 3.36 Urine Color Urine Appearance Urine pH Ur Specific [place] Urine Protein Urine Glucose (UA) Urine Ketones Urine Blood Urine Nitrite Urine Bilirubin Urine Urobilinogen Ur Leukocyte Esterase Urine WBC (Auto) Urine RBC (Auto) Urine Casts (Auto) U Epithel Cells (Auto) Urine Bacteria (Auto) Blood Type Antibody Screen 08/02/19 08/02/19 08/02/19 21:30 21:30 21:45 WBC RBC Hgb Hct MCV MCH MCHC RDW Plt Count MPV Absolute Neuts (auto) Neutrophils % Lymphocytes % Monocytes % Eosinophils % Basophils % Nucleated RBC % PT with INR 14.10 H INR 1.19 H Sodium Potassium Chloride Carbon Dioxide Anion Gap BUN Creatinine Est GFR (CKD-EPI)AfAm Est GFR (CKD-EPI)NonAf Random Glucose Calcium Total Bilirubin AST ALT Alkaline Phosphatase Creatine Kinase Creatine Kinase Index CK-MB (CK-2) Troponin I Total Protein Albumin TSH Urine Color Yellow Urine Appearance Clear Urine pH 6.0 Ur Specific [place] 1.024 Urine Protein 1+ H Urine Glucose (UA) Negative Urine Ketones Negative Urine Blood Negative Urine Nitrite Negative Urine Bilirubin Negative Urine Urobilinogen 1.0 Ur Leukocyte Esterase Negative Urine WBC (Auto) 1 Urine RBC (Auto) 1 Urine Casts (Auto) 3 U Epithel Cells (Auto) 0.9 Urine Bacteria (Auto) 0.2 Blood Type A POSITIVE Antibody Screen Negative Patient's CXR was negative for acute processes. Defibrillator noted on the cxr. Patient is unaware of the brand. The patient is unsure if his defibrillator activated. EKG shows the following: ventricular rate is 83 bpm, IN is 174 ms, QRS is 100 ms , and QTc 481 ms. Sinus rhythm with PVCs. No ST elevation or depressions noted. Labs were within normal limits. Awaiting official read of CT head and cervical spine. By my read, the patient's CT head and cervical spine is negative for acute process. The patient to be admitted for syncope work up. Likely syncope 2/ 2 cardiogenic causes due to nature of syncope. Patient endorsed to hospitalist and accepted for tele admission. Dispo: Admit 08/03/19 00:13 *DC/Admit/Observation/Transfer Diagnosis at time of Disposition: Obesity, AICD (automatic cardioverter/defibrillator) present, Syncope - Referrals Referrals: Dada Alexander [Primary Care Provider] - - Patient Instructions - Post Discharge Activity
[2019-08-02] MEDS ORDERED: ACETAMINOPHEN 1000 MG/100 ML VIAL (NON FORMULARY) IVPB ONE (20:52)
[2019-08-02 21:51] LABS: BASO % 0.5 % (0-2.0); EOS % 2.7 % (0-4.5); HEMOGLOBIN 12.8 GM/dL (11.7-16.9); LYMPH % 25.6 % (8-40); MCH 28.5 pg (25.7-33.7); MCHC 32.9 g/dl (32.0-35.9); MEAN CELL VOLUME 86.8 fl (80-96); MEAN PLT VOLUME 9.2 fl (7.5-11.1); MONO % 6.9 % (3.8-10.2); NEUT % 64.3 % (42.8-82.8); PLATELET COUNT 135 K/MM3 (134-434); RDW 14.8 % (11.9-15.9); WHITE BLOOD COUNT 6.7 K/mm3 (4.0-10.0)
[2019-08-02] MEDS ORDERED: ACETAMINOPHEN INJECTION 100 ML IVPB ONE (21:55)
[2019-08-02 22:04] LABS: INR 1.19 (0.83-1.09); PROTHROMBIN TIME (PATIENT) 14.1 SEC (9.7-13.0)
[2019-08-02 22:17] LABS: EPI CELLS 0.9 /HPF (0-5/HPF); HYALINE CASTS 3 /lpf (0-8); URINE APPEARANCE CLEAR; URINE BACTERIA 0.2 /hpf (NEGATIVE); URINE BILIRUBIN NEGATIVE (NEGATIVE); URINE COLOR YELLOW; URINE GLUCOSE (UA) NEGATIVE (NEGATIVE); URINE KETONE NEGATIVE (NEGATIVE); URINE LEUK ESTERASE NEGATIVE (NEGATIVE); URINE NITRITE NEGATIVE (NEGATIVE); URINE PROTEIN 1+ (NEGATIVE); URINE RBC 1 /hpf (0-4); URINE WBC 1 /hpf (0-5)
[2019-08-02 22:27] LABS: ALBUMIN 3.6 g/dl (3.4-5.0); BILIRUBIN,TOTAL 0.4 mg/dL (0.2-1); CALCIUM 8.5 mg/dL (8.5-10.1); CREATININE 0.8 mg/dL (0.55-1.3); POTASSIUM 3.5 mmol/L (3.5-5.1); TOT PROT 6.3 g/dl (6.4-8.2)
[2019-08-02] MEDS ORDERED: METOCLOPRAMIDE HCL INJECTION 10 MG/2 ML VIAL IVPB ONE (23:32)
[2019-08-03] MEDS ORDERED: METOCLOPRAMIDE HCL INJECTION 10 MG/2 ML VIAL ONE (00:20)
--- NOTE | 2019-08-03 00:51 | HP ---
Admitting History and Physical - Primary Care Physician PCP: Dada Alexander - Admission Chief Complaint: Syncope History of Present Illness: This is a 59 y/o man with a significant medical history of CAD s/p CABG (08), 6- 7 Stents, LV Systolic Failure nuclear shows 23% with large infarct in Inferior/ Inferolateral/Lateral consultation with Dr Huong Del Rio for Cardiac Transplant, HLD, Subdural Hematoma s/p Craniotomy (16), Hypothyroidism. Who presents to the ED for syncopal episode at 1930 last night. Patient reports becoming lightheaded - LOC (2-3 secs) per family. Patient struck face onto hardwood floors knocking out tooth #8. Patient denies headache, blurred vision. Patient denies fever, chills, cough, SOB, CP, palpitations, AP, N/V/D, constipation, melena, hematochezia, dysuria. Patient reports last Echo 6-8 months ago. Last visit with his Cement Tester Assistant- Dr. Plunkett 3 weeks aqo History Source: Patient, Family Member Limitations to Obtaining History: No Limitations - Past Medical History PLUG PASTER: Yes: Other (Subdural Hematoma) Cardiovascular: Yes: CAD (multiple MIs, PCIs/stents, CABG), HTN, Hyperlipdemia, [place] Musculoskeletal: Yes: Other (left heel spur 2012) Endocrine: Yes: Hypothyroidism - Past Surgical History Past Surgical History: Yes: AICD, Bariatric Surgery (Gastric Sleeve), CABG (2007 ), Craniotomy, Stent, Tonsillectomy - Smoking History Smoking history: Never smoked Have you smoked in the past 12 months: No Aproximately how many cigarettes per day: 0 - Alcohol/Substance Use Hx Alcohol Use: No History of Substance Use: reports: None - Social History Usual Living Arrangement: Yes: With Spouse ADL: Independent Occupation: disabled History of Recent Travel: No Home Medications - Allergies Allergies/Adverse Reactions: Allergies Allergy/AdvReac Type Severity Reaction Status Date / Time No Known Allergies Allergy Verified 08/02/19 20:56 - Home Medications Home Medications: Ambulatory Orders Acetaminophen [Tylenol] 325 mg PO PRN 08/03/19 Albuterol Sulfate [Proair Hfa] 2 puff PO PRN 08/03/19 Aspirin [ASA -] 81 mg PO DAILY 08/03/19 Calcium Carbonate/Vitamin D3 [Calcium 500 + Vit D Caplet] 500 mg PO DAILY Carvedilol [Coreg -] 6.25 mg PO ONCE 08/03/19 Clopidogrel Bisulfate [Plavix -] 75 mg PO DAILY 08/03/19 Ezetimibe [Zetia -] 10 mg PO DAILY 08/03/19 Folic Acid - 1 mg PO DAILY 08/03/19 Isosorbide Mononitrate [Imdur -] 30 mg PO DAILY 08/03/19 Levothyroxine [Synthroid -] 25 mcg PO DAILY 08/03/19 Pravastatin Sodium [Pravachol (Nf)] 80 mg PO HS 08/03/19 Spironolactone [Aldactone] 25 mg PO DAILY 08/03/19 Family Disease History - Family Disease History Family Disease History: Heart Disease: Father ( age 76 CAD, PAD), Other: Father, Mother (alive healthy) Review of Systems - Review of Systems Constitutional: reports: No Symptoms Eyes: reports: No Symptoms HENT: reports: Other (tooth pain) Neck: reports: No Symptoms Cardiovascular: reports: No Symptoms Respiratory: reports: No Symptoms Gastrointestinal: reports: No Symptoms Genitourinary: reports: No Symptoms Breasts: reports: No Symptoms Reported Musculoskeletal: reports: No Symptoms Integumentary: reports: No Symptoms Neurological: reports: Syncope Endocrine: reports: No Symptoms Hematology/Lymphatic: reports: No Symptoms Psychiatric: reports: No Symptoms Pain Intensity: 6 Physical Examination Vital Signs: Vital Signs Temperature 97.9 F 08/02/19 20:46 Pulse Rate 78 08/02/19 23:46 Respiratory Rate 17 08/02/19 20:46 Blood Pressure 129/87 08/02/19 23:46 O2 Sat by Pulse Oximetry (%) 98 08/02/19 23:46 Constitutional: Yes: Well Nourished, No Distress, Calm, Obese Eyes: Yes: WNL, Conjunctiva Clear, EOM Intact, PERRL HENT: Yes: WNL, Atraumatic, Normocephalic, Other (swollen upper lip loose teeth) Neck: Yes: WNL, Supple, Trachea Midline Cardiovascular: Yes: WNL, Regular Rate and Rhythm, S1, S2 Respiratory: Yes: Regular, Diminished (bases). No: Rhonchi, SOB, SOB on Exertion, Tachypnea, Wheezes Gastrointestinal: Yes: WNL, Normal Bowel Sounds, Soft, Abdomen, Obese ...Rectal Exam: Yes: Deferred Renal/: Yes: WNL Breast(s): Yes: WNL Musculoskeletal: Yes: WNL Extremities: Yes: WNL Edema: No Peripheral Pulses WNL: Yes Neurological: Yes: WNL, Alert, Oriented, Cran Nerves II-XII Intact. No: Weakness ...Motor Strength: WNL Psychiatric: Yes: WNL, Alert, Oriented Labs: CBC, BMP 08/02/19 21:30 08/02/19 21:30 Laboratory Results - last 24 hr 08/02/19 08/02/19 08/02/19 21:30 21:30 21:30 WBC 6.7 RBC 4.50 Hgb 12.8 Hct 39.0 MCV 86.8 MCH 28.5 MCHC 32.9 RDW 14.8 Plt Count 135 MPV 9.2 Absolute Neuts (auto) 4.3 Neutrophils % 64.3 Lymphocytes % 25.6 Monocytes % 6.9 Eosinophils % 2.7 Basophils % 0.5 Nucleated RBC % 0 PT with INR INR Sodium 143 Potassium 3.5 Chloride 110 H Carbon Dioxide 30 Anion Gap 4 L BUN 15.0 Creatinine 0.8 Est GFR (CKD-EPI)AfAm 114.93 Est GFR (CKD-EPI)NonAf 99.16 Random Glucose 94 Calcium 8.5 Total Bilirubin 0.4 AST 28 ALT 23 Alkaline Phosphatase 38 L Creatine Kinase 315 H Creatine Kinase Index 0.8 CK-MB (CK-2) 2.7 Troponin I < 0.02 Total Protein 6.3 L Albumin 3.6 TSH 3.36 Urine Color Urine Appearance Urine pH Ur Specific [place] Urine Protein Urine Glucose (UA) Urine Ketones Urine Blood Urine Nitrite Urine Bilirubin Urine Urobilinogen Ur Leukocyte Esterase Urine WBC (Auto) Urine RBC (Auto) Urine Casts (Auto) U Epithel Cells (Auto) Urine Bacteria (Auto) Blood Type Antibody Screen 08/02/19 08/02/19 08/02/19 21:30 21:30 21:45 WBC RBC Hgb Hct MCV MCH MCHC RDW Plt Count MPV Absolute Neuts (auto) Neutrophils % Lymphocytes % Monocytes % Eosinophils % Basophils % Nucleated RBC % PT with INR 14.10 H INR 1.19 H Sodium Potassium Chloride Carbon Dioxide Anion Gap BUN Creatinine Est GFR (CKD-EPI)AfAm Est GFR (CKD-EPI)NonAf Random Glucose Calcium Total Bilirubin AST ALT Alkaline Phosphatase Creatine Kinase Creatine Kinase Index CK-MB (CK-2) Troponin I Total Protein Albumin TSH Urine Color Yellow Urine Appearance Clear Urine pH 6.0 Ur Specific [place] 1.024 Urine Protein 1+ H Urine Glucose (UA) Negative Urine Ketones Negative Urine Blood Negative Urine Nitrite Negative Urine Bilirubin Negative Urine Urobilinogen 1.0 Ur Leukocyte Esterase Negative Urine WBC (Auto) 1 Urine RBC (Auto) 1 Urine Casts (Auto) 3 U Epithel Cells (Auto) 0.9 Urine Bacteria (Auto) 0.2 Blood Type A POSITIVE Antibody Screen Negative Intake & Output 07/31/19 08/01/19 08/02/19 08/03/19 23:59 23:59 23:59 23:59 Weight 117.934 kg Current Medications Generic Name Dose Route Start Last Admin Trade Name Freq PRN Reason Stop Dose Admin Acetaminophen 650 mg 08/03/19 02:55 Tylenol - PO Q6H PRN PAIN OR FEVER Aspirin 81 mg 08/03/19 10:00 Asa - PO DAILY [facility] Atorvastatin Calcium 80 mg 08/03/19 22:00 Lipitor - PO HS [facility] Calcium Carbonate 500 mg 08/03/19 10:00 Os-Aiden 500mg - PO DAILY [facility] Carvedilol 6.25 mg 08/03/19 10:00 Coreg - PO BID [facility] Clopidogrel Bisulfate 75 mg 08/03/19 10:00 Plavix - PO DAILY [facility] Isosorbide Mononitrate 30 mg 08/03/19 10:00 Imdur - PO DAILY [facility] Levetiracetam 500 mg 08/03/19 10:00 Keppra - PO BID [facility] Levothyroxine Sodium 25 mcg 08/03/19 07:00 Synthroid - PO ACBK [facility] Lisinopril 2.5 mg 08/03/19 10:00 Prinivil PO DAILY [facility] Multivitamins/Minerals/Vitamin C 1 tab 08/03/19 10:00 Tab-A-Vit - PO DAILY [facility] Sacubitril/Valsartan 1 tab 08/03/19 10:00 Entresto 49 Mg-51 Mg Tablet PO BID [facility] Spironolactone 25 mg 08/03/19 10:00 Aldactone - PO DAILY [facility] Imaging - Results Chest X-ray: Image Reviewed Cat Scan: Image Reviewed EKG: Image Reviewed Problem List - Problems (1) Syncope Assessment/Plan: Likely secondary to arrhythmia vs seizure vs malignancy Head CT- neg ICH, mass or tumor C- Spine CT- neg fx or subluxation Continue cardiac monitoring Serial Enzymes neg x1, will trend Appreciate Cardiology consult Chest Xray-reviewed Echo Carotid Doppler r/o stenosis Orthostatics Monitor CBC, BMP Fall Precautions Seizure Precautions Code(s): R55 - SYNCOPE AND COLLAPSE (2) CAD (coronary artery disease) Assessment/Plan: s/p CABG s/p Stents stable Continue home meds with parameters EKG- reviewed Code(s): I25.10 - ATHSCL HEART DISEASE OF [place] CORONARY ARTERY W/O ANG PCTRS (3) HLD (hyperlipidemia) Assessment/Plan: stable Continue Lipitor Monitor LFTs Code(s): E78.5 - HYPERLIPIDEMIA, UNSPECIFIED (4) HTN (hypertension) Assessment/Plan: sub-optimal Monitor BP Continue home meds with parameters Monitor renal function Code(s): I10 - ESSENTIAL (PRIMARY) HYPERTENSION (5) Hypothyroidism Assessment/Plan: stable Continue Levothyroxine TSH in am Code(s): E03.9 - HYPOTHYROIDISM, UNSPECIFIED (6) Seizure disorder Assessment/Plan: stable Continue Keppra Keppra level-pending Seizure Precautions Fall Precautions Monitor CBC, BMP Monitor vitals Code(s): G40.909 - EPILEPSY, UNSP, NOT INTRACTABLE, WITHOUT STATUS EPILEPTICUS (7) Hx of subdural hematoma Assessment/Plan: stable Head CT- no acute ICH Code(s): Z86.79 - PERSONAL HISTORY OF OTHER DISEASES OF THE CIRCULATORY SYSTEM (8) S/P CABG x 1 Assessment/Plan: stable Continue home meds Code(s): Z95.1 - PRESENCE OF AORTOCORONARY BYPASS GRAFT (9) Morbid obesity with BMI of 45.0-49.9, adult Assessment/Plan: s/p Gastric Sleeve Patient counseled on making healthier food choices, he is amendable Appreciate RD consult Code(s): E66.01 - MORBID (SEVERE) OBESITY DUE TO EXCESS CALORIES; Z68.42 - BODY MASS INDEX (BMI) 45.0-49.9, ADULT (10) AICD (automatic cardioverter/defibrillator) present Code(s): Z95.810 - PRESENCE OF AUTOMATIC (IMPLANTABLE) CARDIAC DEFIBRILLATOR Assessment/Plan This is a 59 y/o man with a PMHx of CAD s/p CABG, 6-7 Stents, LV Systolic Failure, HLD, Subdural Hematoma (s/p Craniotomy), Hypothyroidism. Placed in Telemetry Observation for Syncope for further evaluation of their emergent condition. Plan: See Problem List FEN PO fluids as tolerated Replete lytes prn Soft, Low Na Diet DVT ppx OOB SCDs Consider AC if LOS > 48 hrs Dispo: Observation Visit type - Emergency Visit Emergency Visit: Yes ED Registration Date: 08/02/19 Care time: The patient presented to the Emergency Department on the above date and was hospitalized for further evaluation of their emergent condition. - New Patient This patient is new to me today: Yes Date on this admission: 08/03/19 - Critical Care Critical Care patient: No
[2019-08-03] MEDS ORDERED: ACETAMINOPHEN 325 MG TABLET (FP) PO PRN (02:55)
[2019-08-03 04:42] VITALS: BMI 44.2
[2019-08-03] MEDS: LEVOTHYROXINE NA 25 MCG TABLET (FP) PO SCH (06:51)
[2019-08-03 07:04] LABS: BASO % 0.4 % (0-2.0); HEMATOCRIT 37.7 % (35.4-49); HEMOGLOBIN 12.5 GM/dL (11.7-16.9); LYMPH % 38.9 % (8-40); MCH 28.4 pg (25.7-33.7); MCHC 33.1 g/dl (32.0-35.9); MEAN CELL VOLUME 85.7 fl (80-96); MEAN PLT VOLUME 9.2 fl (7.5-11.1); MONO % 7.6 % (3.8-10.2); NEUT % 50.1 % (42.8-82.8); PLATELET COUNT 126 K/MM3 (134-434); RDW 14.7 % (11.9-15.9); WHITE BLOOD COUNT 5.3 K/mm3 (4.0-10.0)
[2019-08-03 07:56] LABS: ANION GAP 7 MMOL/L (8-16); BLOOD UREA NITROGEN 13.5 mg/dL (7-18); CALCIUM 8.3 mg/dL (8.5-10.1); CHLORIDE 107 mmol/L (98-107); CO2 30 mmol/L (21-32); CREATININE 0.8 mg/dL (0.55-1.3); GLUCOSE,RANDOM 87 mg/dL (74-106); MAGNESIUM 1.8 mg/dL (1.8-2.4); POTASSIUM 3.2 mmol/L (3.5-5.1); SODIUM 144 mmol/L (136-145)
[2019-08-03] MEDS: ASPIRIN 81 MG CHEWABLE TABLETS PO SCH (09:34)
[2019-08-03] MEDS: CALCIUM (OYSTER SHELL) 500 MG TABLET (FP) PO SCH (09:35)
[2019-08-03] MEDS: SPIRONOLACTONE 25 MG TABLET (FP) PO SCH (09:35)
[2019-08-03] MEDS: MULTIVITAMINS (DAILY MVI) TABLET (FP) PO SCH (09:35)
[2019-08-03] MEDS: ISOSORBIDE MONONITRATE 30 MG TAB.SR.24H (FP) PO SCH (09:35)
[2019-08-03] MEDS: levETIRAcetam 500 MG TABLET (FP) PO SCH ×2 (09:36→22:48)
[2019-08-03] MEDS: CARVEDILOL 6.25 MG TABLET (FP) PO SCH ×3 (09:36→22:49)
[2019-08-03] MEDS: CLOPIDOGREL BISULFATE 75 MG TABLET (FP) PO SCH (09:36)
[2019-08-03] MEDS ORDERED: LISINOPRIL 5 MG TABLET (FP) PO SCH (10:00)
[2019-08-03] MEDS ORDERED: SACUBITRIL/VALSARTAN 49 MG-51 MG TABLET PO SCH (10:00)
--- NOTE | 2019-08-03 11:39 | CON.CARD ---
Consult Consult Specialty:: ardiology Referred by:: Stacy Reason for Consultation:: syncope - History of Present Illness Chief Complaint: I passed out History of Present Illness: The patient is a 59year-old obese man, we've a history of hypertension, hyperlipidemia, systolic heart failure, status post ICD implantation, numerous stents,status post CABG in 2007,severe left ventricular systolic dysfunction, subdural hematoma, status post craniotomy in 2015, hypothyroidism,now presenting with syncope. The patient stated that he was sitting in the chair and became dizzy.He tried to stand up and collapsed. He denies chest pains and shortness of breath. No palpitations.No discharges from the defibrillator. telemetry showing sinus rhythm.The patient is back to his baseline Breathing normally. Well compensated and euvolemic. 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) Cardio/Vascular: Yes: CAD (multiple MIs, PCIs/stents, CABG), HTN, Hyperlipdemia , [place] Musculoskeletal: Yes: Other (left heel spur 2012) Endocrine: Yes: Hypothyroidism - Past Surgical History Past Surgical History: Yes: AICD, Bariatric Surgery (Gastric Sleeve), CABG (2007 ), Craniotomy, Stent, Tonsillectomy - Alcohol/Substance Use Hx Alcohol Use: No History of Substance Use: reports: None - Smoking History Smoking history: Never smoked Have you smoked in the past 12 months: No Aproximately how many cigarettes per day: 0 - Social History ADL: Independent Occupation: disabled History of Recent Travel: No Home Medications - Allergies Allergies/Adverse Reactions: Allergies Allergy/AdvReac Type Severity Reaction Status Date / Time No Known Allergies Allergy Verified 08/02/19 20:56 - Home Medications Home Medications: Ambulatory Orders Acetaminophen [Tylenol] 325 mg PO PRN 08/03/19 Albuterol Sulfate [Proair Hfa] 2 puff PO PRN 08/03/19 Aspirin [ASA -] 81 mg PO DAILY 08/03/19 Calcium Carbonate/Vitamin D3 [Calcium 500 + Vit D Caplet] 500 mg PO DAILY Carvedilol [Coreg -] 6.25 mg PO ONCE 08/03/19 Clopidogrel Bisulfate [Plavix -] 75 mg PO DAILY 08/03/19 Ezetimibe [Zetia -] 10 mg PO DAILY 08/03/19 Folic Acid - 1 mg PO DAILY 08/03/19 Isosorbide Mononitrate [Imdur -] 30 mg PO DAILY 08/03/19 Levothyroxine [Synthroid -] 25 mcg PO DAILY 08/03/19 Pravastatin Sodium [Pravachol (Nf)] 80 mg PO HS 08/03/19 Spironolactone [Aldactone] 25 mg PO DAILY 08/03/19 Family Disease History - Family Disease History Family Disease History: Heart Disease: Father ( age 76 CAD, PAD), Other: Father, Mother (alive healthy) Review of Systems - Review of Systems Constitutional: reports: No Symptoms Eyes: reports: No Symptoms HENT: reports: No Symptoms Neck: reports: No Symptoms Cardiovascular: reports: No Symptoms Respiratory: reports: No Symptoms Gastrointestinal: reports: No Symptoms Genitourinary: reports: No Symptoms Breasts: reports: No Symptoms Reported Musculoskeletal: reports: No Symptoms Integumentary: reports: No Symptoms Neurological: reports: No Symptoms Endocrine: reports: No Symptoms Hematology/Lymphatic: reports: No Symptoms Vital Signs: Vital Signs Temperature 97.4 F L 08/03/19 10:00 Pulse Rate 78 08/03/19 10:00 Respiratory Rate 18 08/03/19 10:00 Blood Pressure 137/85 08/03/19 10:00 O2 Sat by Pulse Oximetry (%) 99 08/03/19 10:00 Constitutional: Yes: No Distress, Obese Eyes: Yes: WNL, Conjunctiva Clear, EOM Intact HENT: Yes: WNL, Atraumatic, Normocephalic Neck: Yes: WNL, Supple, Trachea Midline Respiratory: Yes: WNL, Regular, CTA Bilaterally Gastrointestinal: Yes: WNL, Normal Bowel Sounds, Soft Renal/: Yes: WNL Cardiovascular: Yes: WNL, Regular Rate and Rhythm JVD: No Carotid Bruit: No PMI: Displaced Heart Sounds: Yes: S1, S2 Murmur: Yes: Systolic Murmur, Grade 2 Musculoskeletal: Yes: WNL Extremities: Yes: WNL Edema: No Peripheral Pulses: 1+ Left Carotid, 1+ Right Carotid, 1+ Left Femoral, 1+ Right Femoral, 1+ Left Popliteal, 1+ Right Popliteal, 1+ Left Doralis Pedis, 1+ Right Dorsalis Pedis Integumentary: Yes: WNL Neurological: Yes: WNL, Alert, Oriented ...Motor Strength: WNL Psychiatric: Yes: WNL - Other Data Labs, Other Data: CBC, BMP 08/03/19 06:27 08/03/19 06:27 INR, PTT INR 1.19 (0.83-1.09) H 08/02/19 21:30 Troponin, BNP 08/02/19 08/03/19 08/03/19 21:30 02:54 06:27 Troponin I < 0.02 < 0.02 0.02 Troponin, BNP 08/02/19 08/03/19 08/03/19 21:30 02:54 06:27 Troponin I < 0.02 < 0.02 0.02 Assessment/Plan The patient is a 59year-old obese man, we've a history of hypertension, hyperlipidemia, systolic heart failure, status post ICD implantation, numerous stents,status post CABG in 2007,severe left ventricular systolic dysfunction, subdural hematoma, status post craniotomy in 2015, hypothyroidism,now presenting with syncope. The patient stated that he was sitting in the chair and became dizzy.He tried to stand up and collapsed. He denies chest pains and shortness of breath. No palpitations.No discharges from the defibrillator. telemetry showing sinus rhythm.The patient is back to his baseline Breathing normally. Well compensated and euvolemic. there is no evidence of ischemia nor acute coronary syndrome.No CHF. The patient is well compensated and euvolemic. No discharges from the defibrillator. would observe for further 24 hours on telemetry. No need for further cardiac workup at this point. please continue the same regimen. please arrange for close follow-up appointment with the patient's own equipment associate. The ICD may be interrogated as outpatient. please do not hesitate to call us PRN.
--- NOTE | 2019-08-03 15:02 | EKG ---
Test Reason : Blood Pressure : / mmHG Vent. Rate : 083 BPM Atrial Rate : 083 BPM P-R Int : 174 ms QRS Dur : 100 ms QT Int : 410 ms P-R-T Axes : 061 072 066 degrees QTc Int : 481 ms SINUS RHYTHM WITH FREQUENT PREMATURE VENTRICULAR COMPLEXES LEFT ATRIAL ENLARGEMENT INFERIOR INFARCT ABNORMAL ECG Confirmed by MD BELKYS, MATTHEW ([id number]) on 08/03/2019 3:02:05 PM Referred By: Confirmed By:MATTHEW RIZVI MD
--- NOTE | 2019-08-03 16:27 | PN ---
Progress Note, Physician Chief Complaint: Syncope Hypokalemia History of Present Illness: NAD lethargic - Current Medication List Current Medications: Active Medications Acetaminophen (Tylenol -) 650 mg PO Q6H PRN PRN Reason: PAIN OR FEVER Aspirin (Asa -) 81 mg PO DAILY [facility] Last Admin: 08/03/19 09:34 Dose: 81 mg Atorvastatin Calcium (Lipitor -) 80 mg PO HS [facility] Calcium Carbonate (Os-Aiden 500mg -) 500 mg PO DAILY [facility] Last Admin: 08/03/19 09:35 Dose: 500 mg Carvedilol (Coreg -) 6.25 mg PO BID [facility] Last Admin: 08/03/19 09:36 Dose: 6.25 mg Clopidogrel Bisulfate (Plavix -) 75 mg PO DAILY [facility] Last Admin: 08/03/19 09:36 Dose: 75 mg Isosorbide Mononitrate (Imdur -) 30 mg PO DAILY [facility] Last Admin: 08/03/19 09:35 Dose: 30 mg Levetiracetam (Keppra -) 500 mg PO BID [facility] Last Admin: 08/03/19 09:36 Dose: 500 mg Levothyroxine Sodium (Synthroid -) 25 mcg PO ACBK [facility] Last Admin: 08/03/19 06:51 Dose: 25 mcg Lisinopril (Prinivil) 2.5 mg PO DAILY [facility] Last Admin: 08/03/19 09:35 Dose: 2.5 mg Multivitamins/Minerals/Vitamin C (Tab-A-Vit -) 1 tab PO DAILY [facility] Last Admin: 08/03/19 09:35 Dose: 1 tab Sacubitril/Valsartan (Entresto 49 Mg-51 Mg Tablet) 1 tab PO BID [facility] Spironolactone (Aldactone -) 25 mg PO DAILY [facility] Last Admin: 08/03/19 09:35 Dose: 25 mg - Objective Vital Signs: Vital Signs Temperature 97.5 F L 08/03/19 14:00 Pulse Rate 68 08/03/19 14:00 Respiratory Rate 20 08/03/19 14:00 Blood Pressure 114/63 08/03/19 14:00 O2 Sat by Pulse Oximetry (%) 99 08/03/19 10:00 Constitutional: Yes: Well Nourished, No Distress, Calm Cardiovascular: Yes: Regular Rate and Rhythm Respiratory: Yes: Regular Gastrointestinal: Yes: Normal Bowel Sounds, Soft Genitourinary: Yes: WNL Musculoskeletal: Yes: Muscle Weakness Extremities: Yes: WNL Edema: No Peripheral Pulses WNL: Yes Neurological: Yes: Alert, Oriented Psychiatric: Yes: Alert, Oriented Labs: CBC, BMP 08/03/19 06:27 08/03/19 06:27 INR, PTT INR 1.19 (0.83-1.09) H 08/02/19 21:30 Problem List - Problems (1) Hypokalemia Assessment/Plan: -Kcl 40 meq once -monitor daily trend Code(s): E87.6 - HYPOKALEMIA (2) AICD (automatic cardioverter/defibrillator) present Code(s): Z95.810 - PRESENCE OF AUTOMATIC (IMPLANTABLE) CARDIAC DEFIBRILLATOR (3) CAD (coronary artery disease) Assessment/Plan: -Continue aspirin, plavix, statin Code(s): I25.10 - ATHSCL HEART DISEASE OF [place] CORONARY ARTERY W/O ANG PCTRS (4) Hx of subdural hematoma Code(s): Z86.79 - PERSONAL HISTORY OF OTHER DISEASES OF THE CIRCULATORY SYSTEM (5) Syncope Assessment/Plan: -Cardiology consult -Echo pending -U/S carotid done, report pending -CT Head (-) -Cervical spine CT (-) -fall precautions -check orthostatics -Tele monitoring Code(s): R55 - SYNCOPE AND COLLAPSE Assessment/Plan see problem list
[2019-08-03] MEDS ORDERED: ATORVASTATIN CA 80 MG TABLET (FP) PO SCH (22:00)
--- NOTE | 2019-08-04 01:00 | HOSP ---
Subjective - Review of Symptoms Events since last encounter: Hospitalist Encounter Notified by the RN, to call Radiology distribution collection operator regarding Brain CT results Spoke with Dr Adam regarding the Brain CT results-possible small subtle focus of acute subarachnoid blood is seen along the left medial parietal lobe adjacent to the cingulate sulcus. Correlate with follow-up CT 0010- call placed to Dr. Goff's answering service to inform of results, awaiting a call back. Spoke with the RN regarding pt. Patient denies BENITEZ, blurred vision, dizziness, N/ V- asymptomatic. BP 109/71, P 73 Physical Examination Vital Signs: Vital Signs Temperature 97.9 F 08/03/19 21:00 Pulse Rate 73 08/03/19 21:30 Respiratory Rate 18 08/03/19 21:00 Blood Pressure 115/65 08/03/19 21:30 O2 Sat by Pulse Oximetry (%) 97 08/03/19 21:00 Labs: CBC, BMP 08/03/19 06:27 08/03/19 06:27
[2019-08-04] MEDS: LEVOTHYROXINE NA 25 MCG TABLET (FP) PO SCH (06:20)
[2019-08-04] MEDS ORDERED: PT OWN MED DRAWER 7, Y5N ONE ×2 (10:03→12:28)
[2019-08-04] MEDS: ASPIRIN 81 MG CHEWABLE TABLETS PO SCH (10:17)
[2019-08-04] MEDS: SPIRONOLACTONE 25 MG TABLET (FP) PO SCH (10:17)
[2019-08-04] MEDS: CLOPIDOGREL BISULFATE 75 MG TABLET (FP) PO SCH (10:18)
[2019-08-04] MEDS: CALCIUM (OYSTER SHELL) 500 MG TABLET (FP) PO SCH (10:18)
[2019-08-04] MEDS: ISOSORBIDE MONONITRATE 30 MG TAB.SR.24H (FP) PO SCH (10:18)
[2019-08-04] MEDS: CARVEDILOL 6.25 MG TABLET (FP) PO SCH (10:18)
[2019-08-04] MEDS: levETIRAcetam 500 MG TABLET (FP) PO SCH (10:18)
[2019-08-04] MEDS: MULTIVITAMINS (DAILY MVI) TABLET (FP) PO SCH (10:18)
--- NOTE | 2019-08-04 11:23 | PN ---
Progress Note, Physician Chief Complaint: Syncope Hypokalemia History of Present Illness: NAD lethargic CT head shows small subarachnoid bleed. Neurology consult pending Pt neurologically at baseline Orthostatics negative - Current Medication List Current Medications: Active Medications Acetaminophen (Tylenol -) 650 mg PO Q6H PRN PRN Reason: PAIN OR FEVER Aspirin (Asa -) [address] [facility] Last Admin: 08/04/19 10:17 Dose: 81 mg Atorvastatin Calcium (Lipitor -) [address] [facility] Last Admin: 08/03/19 22:48 Dose: 80 mg Calcium Carbonate (Os-Aiden 500mg -) [address] [facility] Last Admin: 08/04/19 10:18 Dose: 500 mg Carvedilol (Coreg -) 6.[address] [facility] Last Admin: 08/04/19 10:18 Dose: 6.25 mg Clopidogrel Bisulfate (Plavix -) [address] [facility] Last Admin: 08/04/19 10:18 Dose: 75 mg Isosorbide Mononitrate (Imdur -) [address] [facility] Last Admin: 08/04/19 10:18 Dose: 30 mg Levetiracetam (Keppra -) [address] [facility] Last Admin: 08/04/19 10:18 Dose: 500 mg Levothyroxine Sodium (Synthroid -) [address] [facility] Last Admin: 08/04/19 06:20 Dose: 25 mcg Multivitamins/Minerals/Vitamin C (Tab-A-Vit -) [address] [facility] Last Admin: 08/04/19 10:18 Dose: 1 tab Sacubitril/Valsartan (Entresto 49 Mg-51 Mg Tablet) [address] [facility] Spironolactone (Aldactone -) [address] [facility] Last Admin: 08/04/19 10:17 Dose: 25 mg - Objective Vital Signs: Vital Signs Temperature 97.9 F 08/04/19 09:00 Pulse Rate 62 08/04/19 09:00 Respiratory Rate 18 08/04/19 09:00 Blood Pressure 112/57 L 08/04/19 09:13 O2 Sat by Pulse Oximetry (%) 97 08/03/19 21:00 Constitutional: Yes: Well Nourished, No Distress, Calm, Obese Cardiovascular: Yes: Regular Rate and Rhythm Respiratory: Yes: Regular Gastrointestinal: Yes: WNL, Normal Bowel Sounds, Soft, Abdomen, Obese Genitourinary: Yes: WNL Musculoskeletal: Yes: WNL Edema: No Peripheral Pulses WNL: Yes Neurological: Yes: Alert, Oriented Psychiatric: Yes: Alert, Oriented Labs: CBC, BMP 08/03/19 06:27 08/03/19 06:27 INR, PTT INR 1.19 (0.83-1.09) H 08/02/19 21:30 Problem List - Problems (1) Hypokalemia Assessment/Plan: -Kcl 40 meq once -monitor daily trend Code(s): E87.6 - HYPOKALEMIA (2) AICD (automatic cardioverter/defibrillator) present Code(s): Z95.810 - PRESENCE OF AUTOMATIC (IMPLANTABLE) CARDIAC DEFIBRILLATOR (3) CAD (coronary artery disease) Assessment/Plan: -Continue aspirin, plavix, statin -seen by cardiology -No further cardiac work up recommended Code(s): I25.10 - ATHSCL HEART DISEASE OF [place] CORONARY ARTERY W/O ANG PCTRS (4) Hx of subdural hematoma Code(s): Z86.79 - PERSONAL HISTORY OF OTHER DISEASES OF THE CIRCULATORY SYSTEM (5) Syncope Assessment/Plan: -Cardiology consult -Echo pending -U/S carotid done, report pending -CT Head (-) -Cervical spine CT (-) -fall precautions -check orthostatics -Tele monitoring Code(s): R55 - SYNCOPE AND COLLAPSE (6) Subarachnoid bleed Assessment/Plan: -CT head+ cervical spine reviewed -Neurology to see the pt -NS consult Dr Simpson Code(s): I60.9 - NONTRAUMATIC SUBARACHNOID HEMORRHAGE, UNSPECIFIED Assessment/Plan See problem list
[2019-08-04] MEDS ORDERED: POTASSIUM CHLORIDE TABS 20 MEQ TABLET.ER (FP) PO ONE (12:30)
[2019-08-04 14:18] LABS: BLOOD UREA NITROGEN 18.3 mg/dL (7-18); CALCIUM 8.3 mg/dL (8.5-10.1); CREATININE 0.9 mg/dL (0.55-1.3)
--- NOTE | 2019-08-04 14:33 | CONSULT ---
Consult - text type - Consultation Consultation Note: NEUROLOGY CONSULTATION is greatly appreciated: Events reviewed and discussed with Usama Ordoñez NP. Pt examined with with at the bedside. This 59 yo RH man with h/o HTN, Chol, hypothyroidism and severe ASHD is s/p CABG and stents x6. s/p defibrillator. EF=23%. Awaiting heart transplant. S/P evacuation right subdural hematoma (SDH) 2015. Denies seizures. Maintained on: Isosorbide; Atorvastatin; Carvedilol; Hydrocortisone; Lisinopril ; levETIRAcetam (500 mg PO BID); ASA; Nitroglycerin Sublingual. Monday was watching TV at his mother's house when he became lightheaded in a chair. When he attempted to get up and walk he had witnessed LOC without seizure activity. + facial trauma knocking out a tooth. Brief LOC then rapidly reoriented. Mild headache yesterday, now resolved. CT of head (reviewed): s/p right craniectomy. No SDH. Possible, small SAH over parietal convexity. CT of C-spine: DJD without traumatic changes. TRISTON: Obese. No bruits. s/p PPM/defibrillator, s/p right craniectomy. Cor reg. Right front incisor gone. No Serrano's signs or orbital ecchymoses. NEURO: MS/Speech: normal CN II-XII: Normal without nystagmus. Motor: No drift or tremor. Normal strength, tone, bulk and reflexes. Toes downgoing. Coord: No FTN dystaxia Sensory: Normal. Romberg - Gait: Normal IMP: Normal neurological exam Syncope: Etiology probably a combination of orthostatic hypotension, meds and underlying heart disease. R/O a ventricular arrythmia. Possible small post-traumatic SAH Suggest: check orthostatic BP's Interrogate defibrillator Continue levetiracetam 500 mg PO BID for now. Out patient neurology follow-up to Dr. Isabel Goff. Thank you very much, Nick Hill MD
[2019-08-04 14:43] VITALS: BP 136/64; PULSE 70; TEMP 98
== END 2019-08-04 16:05 | disposition home or self-care (01) ==
LOC: JER 20:26 → JERBED 08-03 00:12 → J4W 08-03 03:52
PROVIDERS: ADMIT Family Medicine; ATTEND Family Medicine
PROC: 3E033NZ Introduction of Analgesics, Hypnotics, Sedatives into Peripheral Vein, Percutaneous Approach (ICD-10-PCS; principal; 2019-08-03)
PROC: 3E033GC Introduction of Other Therapeutic Substance into Peripheral Vein, Percutaneous Approach (ICD-10-PCS; 2019-08-03)
DX: R55 Syncope and collapse (principal); I11.0 Hypertensive heart disease with heart failure; E78.5 Hyperlipidemia, unspecified; I25.10 Atherosclerotic heart disease of native coronary artery without angina pectoris; I50.20 Unspecified systolic (congestive) heart failure; E03.9 Hypothyroidism, unspecified; G40.909 Epilepsy, unspecified, not intractable, without status epilepticus; E87.6 Hypokalemia; E66.01 Morbid (severe) obesity due to excess calories; Z68.41 Body mass index [BMI] 40.0-44.9, adult; Z86.73 Personal history of transient ischemic attack (TIA), and cerebral infarction without residual deficits; Z95.1 Presence of aortocoronary bypass graft; Z95.5 Presence of coronary angioplasty implant and graft; Z79.82 Long term (current) use of aspirin; Z98.84 Bariatric surgery status; Z95.810 Presence of automatic (implantable) cardiac defibrillator; Z86.79 Personal history of other diseases of the circulatory system
CPT/HCPCS: 36415; 70450-TC; 71045-TC-FY; 72125-TC; 80048; 80053; 81003; 82550; 82553; 83735; 84100; 84443; 84484; 85025; 85610; 86850; 86900; 86901; 87086; 93005; 93010; 93880-TC; 96374; 96375; 99285-25; G0378; J0131